=== PATIENT | male | born 2000 | race Caucasian/White ===

== ENCOUNTER 2023-03-29 11:57 | Inpatient (IN) | payer OTHER, SELFPAY ==
--- NOTE | ~2023-03-29 | XR_ITS ---
EXAMINATION: XR CHEST UPRIGHT AP PORTABLE, 2:17 PM CLINICAL INFORMATION: Cough COMPARISON: None available. TECHNIQUE: Frontal view of the chest was obtained. FINDINGS: No significant abnormality is noted involving the heart, lungs, mediastinum, bony thorax or soft tissues. XR/XR chest 1V IMPRESSION: No acute disease
--- NOTE | 2023-03-29 12:01 | ECG_ITS ---
Test Reason : TOXIC INGESTION] Blood Pressure : / mmHG Vent. Rate : 073 BPM Atrial Rate : 073 BPM P-R Int : 118 ms QRS Dur : 096 ms QT Int : 390 ms P-R-T Axes : -41 051 048 degrees QTc Int : 429 ms Unusual P axis, possible ectopic atrial rhythm ST elevation, consider early repolarization Abnormal ECG No previous ECGs available Referred By: Yuni Louis Electronically Signed By:THOR ALBA
[2023-03-29 12:02] VITALS: BP 120/71; BP 130/80; PULSE 70; PULSE 94; RESP 16; TEMP 37; O2SAT 98; BMI 19.3
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
--- NOTE | 2023-03-29 12:26 | MHC.CARE ---
Pt was seen by [facility] in community, pt inpatient level of care and will be bed search.
[2023-03-29 12:27] LABS: MANUAL DIFF FLAG NO
[2023-03-29 12:28] LABS: Basophils Absolute Auto 0.1 X10*3/uL (0.0-0.2); Basophils Percent Auto 0.5 % (0-2); Eosinophils Percent Auto 0.3 % (0-4); Hematocrit 41.9 % (42.0-52.0); Hemoglobin 14.3 g/dl (14.0-18.0); Imm Gran Abs Auto 0.06 X10*3/uL (0.00-0.03); Imm Gran Pct Auto 0.4 % (0.0-0.4); Lymphocytes Absolute Auto 1.1 X10*3/uL (1.2-4.9); Lymphocytes Percent Auto 7.4 % (20-40); Mean Corpuscular HGB Conc 34.1 g/dl (31.0-36.0); Mean Corpuscular Hemoglobin 31.8 pg (27.0-33.0); Mean Corpuscular Volume 93.3 fL (80.0-98.0); Mean Platelet Volume 9.6 fL (9.4-12.4); Monocytes Absolute Auto 1.3 X10*3/uL (0.1-1.2); Monocytes Percent Auto 8.9 % (2-11); Neutrophils Absolute Auto 12.3 x10*3/uL (2.0-8.3); Neutrophils Percent Auto 82.5 % (45-73); Platelet Count 289 X10*3/uL (160-400); Red Blood Count 4.49 X10*6/uL (4.60-5.80); Red Cell Distribution Width 13.3 % (11.0-16.0); White Blood Count 14.9 X10*3/uL (4.8-10.8)
--- NOTE | 2023-03-29 12:38 | PC.NURSE ---
call to poison control; [phone]. recommendations to supportive care; pt may experience n/v/d. recommends egd/scope if pt experiences severe abd pain/n/v. recommends to monitor pt for another 1-[address] Louis notified of all recommendations.
[2023-03-29 12:41] LABS: Ethanol < 10 mg/dL
[2023-03-29 12:42] LABS: Alanine Aminotransferase 12 U/L (0-40); Albumin Level 4.5 g/dL (3.5-5.0); Alkaline Phosphatase 71 U/L (39-117); Anion Gap 13 (12-20); Aspartate Amino Transferase 36 U/L (5-37); Bilirubin Total 0.5 mg/dL (0.0-1.0); Blood Urea Nitrogen 10 mg/dL (9-16); Calcium 9.6 mg/dL (8.4-10.2); Carbon Dioxide 23 mmol/L (22-29); Chloride 109 mmol/L (96-108); Creatinine Clr Calc Pharmacy 122.3; Estimated Glomerular Filt Rate > 60; Glucose Random 99 mg/dL (60-115); Magnesium 1.9 mg/dL (1.6-2.6); Potassium 3.6 mmol/L (3.3-5.1); Sodium 141 mmol/L (135-145)
[2023-03-29 12:43] LABS: Acetaminophen LAB < 17 mcg/mL (<30); Salicylate < 5.0 mg/dL (15-30)
[2023-03-29 12:44] LABS: Prothrombin Time 11.8 SEC (11.1-13.3)
[2023-03-29 12:48] LABS: Partial Thromboplastin Time 29.5 SEC (26.0-36.4)
[2023-03-29 12:50] LABS: Troponin-I High Sensitivity < 2.7 ng/L (<3.5-35.0)
--- NOTE | 2023-03-29 13:10 | PC.NURSE ---
pt continues to deny n/v/d. resting in stretcher; calm cooperative. respirations even and unlabored. sitter at bedside.
[2023-03-29 13:49] VITALS: BP 130/72; PULSE 89; RESP 16; O2SAT 96
[2023-03-29 13:55] LABS: Appearance Urine Clear; Color Urine Yellow; Glucose Urine UA Negative (Negative); Leukocyte Esterase Urine Negative (Negative); Nitrite Urine Negative (Negative); Specific Gravity - Urine 1.025 (1.005-1.025); Urine Blood Negative (Negative); Urine Ketones 15 mg/dL (Negative); Urine Protein Trace mg/dL (Neg-Trace)
[2023-03-29 14:10] LABS: Amphetamine Screen Urine Not Detected (Not Detect); Barbiturates, Urine Not Detected (Not Detect); Benzodiazepines Screen Urine Not Detected (Not Detect); Cannabinoid Screen Urine POSITIVE (Not Detect); Cocaine Screen Urine POSITIVE (Not Detect); Fentanyl, urine Not Detected (Not Detect); Opiate Screen Urine Not Detected (Not Detect); Phencyclidine Screen Urine Not Detected (Not Detect)
[2023-03-29 14:20] VITALS: BP 127/76; PULSE 96; RESP 14; O2SAT 99
--- NOTE | 2023-03-29 14:47 | PC.NURSE ---
call from poison control; recommendations to medically clear pt o consult psych/care team.
[2023-03-29 14:53] LABS: Influenza A PCR NEGATIVE (Negative); Influenza B PCR NEGATIVE (Negative); Resp Syncy Virus RNA Qual PCR NEGATIVE (Negative); SARS COV2 PCR INHOUSE NEGATIVE (Negative)
--- NOTE | 2023-03-29 16:50 | PC.NURSE ---
t irritable, screaming, crying and hitting his fists on the floor after being told that he will be going inpatient psychiatric. PRN Hydroxyzine ordered per MD Louis, offered to the pt and he initially said yes, then before t/w left the room pt stated actually never mind I don't want it
[2023-03-29] MEDS: Melatonin 3 MG TABLET 9 MG PO (20:53)
[2023-03-29] MEDS: traZODone HCL 50 MG TABLET PO (20:54)
[2023-03-29] MEDS: OLANZapine 5 MG TABLET PO (20:54)
[2023-03-29] MEDS: hydrOXYzine HCL 25 MG TABLET PO (20:54)
[2023-03-29 21:38] VITALS: BP 140/82; PULSE 98; RESP 16; TEMP 36.9; O2SAT 98
[2023-03-29 21:39] VITALS: BMI 18.1
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
[2023-03-30] MEDS: hydrOXYzine HCL 25 MG TABLET PO ×2 (15:30→22:37)
[2023-03-30] MEDS: OLANZapine 5 MG TABLET PO ×3 (16:00→22:37)
[2023-03-30] MEDS: cloNIDine HCL 0.1 MG TABLET PO (16:01)
[2023-03-30] MEDS: FLUoxetine HCl 20 MG CAPSULE PO (16:13)
[2023-03-30 16:14] VITALS: BP 118/72; PULSE 95; RESP 16; TEMP 36.7; O2SAT 98
[2023-03-30 20:05] VITALS: RESP 18
[2023-03-30] MEDS: Melatonin 3 MG TABLET 9 MG PO (22:25)
[2023-03-30] MEDS: traZODone HCL 50 MG TABLET PO (22:26)
[2023-03-30] MEDS: LORazepam 1 MG TABLET PO (22:56)
--- NOTE | 2023-03-31 00:40 | PC.NURSE ---
Celestine is admitted to [facility] for safety, observation and medication management post SI/SA, diagnosis MDD without psychotic features. During the shift he was observed to be laying in a corner of the day room with covers over his head, presented as irritable. Declined initial engagement, stated he wanted to sleep. Around 2200 hours he presented self at the nursing station requesting HS meds, receptive to having VS done, meds given without problems. Later he exhibited emotional outburst after phone call with his mother. He was observed by staff to be crying, and yelling, verbalized, I'm going to freak out! Support and distraction provided my staff, MD Lacy updated and order received for ativan. Celestine was adherent with med, used the phone again to call mother against staff advise, once again became belligerent, slamming assistant customer service manager and yelling. Phones was shut off at 2300 which concluded his ability to contact mother any further. Verbalized, This place is retarded. as he walked to his room. No further incidents.
--- NOTE | 2023-03-31 09:16 | P.PNPSI_ITS ---
Subjective Subjective Date of Service: 03/31/23 Reason For Visit: si Subjective Notes: 3 Day Interim History: Reviewed in team and . Patient reports feeling fine today. Pt stated, I feel fine and safe. I got into an argument with my girlfriend; I was freaking out and then I drank the detergent. It was a really bad slip up. I've never done that before . Patient denies SI. Pt reports his current living situation is difficult; pt stated, I live in a house filled with cat piss and dog shit. I just need to grab my stuff and leave . Pt reports he would like referrals for outpatient providers. He is requesting to be discharged. His 3 day is up on 04/05. Medication Compliance: Yes Side effects from medications: No Attending Groups: No Review of Systems Constitutional: Reports as per HPI Eyes: Reports as per HPI Reports as per HPI Cardiovascular: Reports as per HPI Respiratory: Reports as per HPI Gastrointestinal: Reports as per HPI Genitourinary: Reports as per HPI Musculoskeletal: Reports as per HPI Skin/Breast: Reports as per HPI Reports as per HPI Psychiatric: Reports as per HPI Endocrine: Reports as per HPI Hematologic/Lymphatic: Reports as per HPI Allergic/Immunologic: Reports as per HPI Mental Status Exam Mental Status Exam Narrative: Pt is alert and oriented; behavior is guarded and irritable; dressed in hospital attire; mood is described as fine ; eye contact appropriate; Speech is normal rate, volume and prosody and not pressured; no psychomotor agitation/retardation present; thought process is organized and goal directed; Thought content is on discharge; otherwise pertinent to relevant topics and without any delusional content, paranoid ideations or grandiosity; denies SI/HI. There is no evidence of perceptual disturbance. Patients insight and judgment are poor. Diagnostics Vital Signs (24Hr): Vital Signs - 24 hr 03/30/23 16:14 03/30/23 20:05 Temperature 98.1 F Pulse Rate 95 Respiratory Rate 16 18 Blood Pressure 118/72 Pulse Oximetry 98 Oxygen Delivery Method Room Air BMI result Body Mass Index 18.1 Labs 03/29/23 12:22 03/29/23 12:22 Labs: Laboratory Results - last 48 hr 03/29/23 03/29/23 03/29/23 12:22 12:22 12:22 WBC 14.9 H RBC 4.49 L Hgb 14.3 Hct 41.9 L MCV 93.3 MCH 31.8 MCHC 34.1 RDW 13.3 Plt Count 289 MPV 9.6 Immature Gran % (Auto) 0.4 Neut % (Auto) 82.5 H Lymph % (Auto) 7.4 L [place] % (Auto) 8.9 Eos % (Auto) 0.3 Baso % (Auto) 0.5 Lymph # (Auto) 1.1 L [place] # (Auto) 1.3 H Eos # (Auto) 0.0 Baso # (Auto) 0.1 Abs Immat Gran (auto) 0.06 H Absolute Neuts (auto) 12.3 H Absolute Nucleated RBC 0.000 Nucleated RBC % (auto) 0.0 PT INR APTT 29.5 Sodium 141 Potassium 3.6 Chloride 109 H Carbon Dioxide 23 Anion Gap 13 BUN 10 Creatinine 0.80 Estim Creat Clear Calc 122.3 Estimated GFR > 60 Random Glucose 99 Calcium 9.6 Magnesium 1.9 Total Bilirubin 0.5 AST 36 ALT 12 Alkaline Phosphatase 71 Troponin I High Sens Total Protein 8.0 Albumin 4.5 Urine Color Urine Appearance Urine pH Ur Specific [place] Urine Protein Urine Glucose (UA) Urine Ketones Urine Blood Urine Nitrite Ur Leukocyte Esterase Salicylates Urine Opiates Screen Urine Fentanyl Screen Acetaminophen Ur Barbiturates Screen Ur Phencyclidine Scrn Ur Amphetamines Screen U Benzodiazepines Scrn Urine Cocaine Screen U Marijuana (THC) Screen Ethyl Alcohol Influenza Type A (PCR) Influenza Type B (PCR) RSV RNA Qual (PCR) SARS-CoV-2 RNA (RT-PCR) 03/29/23 03/29/23 03/29/23 12:22 12:22 12:22 WBC RBC Hgb Hct MCV MCH MCHC RDW Plt Count MPV Immature Gran % (Auto) Neut % (Auto) Lymph % (Auto) [place] % (Auto) Eos % (Auto) Baso % (Auto) Lymph # (Auto) [place] # (Auto) Eos # (Auto) Baso # (Auto) Abs Immat Gran (auto) Absolute Neuts (auto) Absolute Nucleated RBC Nucleated RBC % (auto) PT 11.8 INR 1.0 APTT Sodium Potassium Chloride Carbon Dioxide Anion Gap BUN Creatinine Estim Creat Clear Calc Estimated GFR Random Glucose Calcium Magnesium Total Bilirubin AST ALT Alkaline Phosphatase Troponin I High Sens < 2.7 Total Protein Albumin Urine Color Urine Appearance Urine pH Ur Specific [place] Urine Protein Urine Glucose (UA) Urine Ketones Urine Blood Urine Nitrite Ur Leukocyte Esterase Salicylates < 5.0 L Urine Opiates Screen Urine Fentanyl Screen Acetaminophen < 17 Ur Barbiturates Screen Ur Phencyclidine Scrn Ur Amphetamines Screen U Benzodiazepines Scrn Urine Cocaine Screen U Marijuana (THC) Screen Ethyl Alcohol Influenza Type A (PCR) Influenza Type B (PCR) RSV RNA Qual (PCR) SARS-CoV-2 RNA (RT-PCR) 03/29/23 03/29/23 03/29/23 12:22 13:46 13:46 WBC RBC Hgb Hct MCV MCH MCHC RDW Plt Count MPV Immature Gran % (Auto) Neut % (Auto) Lymph % (Auto) [place] % (Auto) Eos % (Auto) Baso % (Auto) Lymph # (Auto) [place] # (Auto) Eos # (Auto) Baso # (Auto) Abs Immat Gran (auto) Absolute Neuts (auto) Absolute Nucleated RBC Nucleated RBC % (auto) PT INR APTT Sodium Potassium Chloride Carbon Dioxide Anion Gap BUN Creatinine Estim Creat Clear Calc Estimated GFR Random Glucose Calcium Magnesium Total Bilirubin AST ALT Alkaline Phosphatase Troponin I High Sens Total Protein Albumin Urine Color Yellow Urine Appearance Clear Urine pH 8.0 Ur Specific [place] 1.025 Urine Protein Trace Urine Glucose (UA) Negative Urine Ketones 15 Urine Blood Negative Urine Nitrite Negative Ur Leukocyte Esterase Negative Salicylates Urine Opiates Screen Not Detected Urine Fentanyl Screen Not Detected Acetaminophen Ur Barbiturates Screen Not Detected Ur Phencyclidine Scrn Not Detected Ur Amphetamines Screen Not Detected U Benzodiazepines Scrn Not Detected Urine Cocaine Screen POSITIVE H U Marijuana (THC) Screen POSITIVE H Ethyl Alcohol < 10 Influenza Type A (PCR) Influenza Type B (PCR) RSV RNA Qual (PCR) SARS-CoV-2 RNA (RT-PCR) 03/29/23 13:53 WBC RBC Hgb Hct MCV MCH MCHC RDW Plt Count MPV Immature Gran % (Auto) Neut % (Auto) Lymph % (Auto) [place] % (Auto) Eos % (Auto) Baso % (Auto) Lymph # (Auto) [place] # (Auto) Eos # (Auto) Baso # (Auto) Abs Immat Gran (auto) Absolute Neuts (auto) Absolute Nucleated RBC Nucleated RBC % (auto) PT INR APTT Sodium Potassium Chloride Carbon Dioxide Anion Gap BUN Creatinine Estim Creat Clear Calc Estimated GFR Random Glucose Calcium Magnesium Total Bilirubin AST ALT Alkaline Phosphatase Troponin I High Sens Total Protein Albumin Urine Color Urine Appearance Urine pH Ur Specific [place] Urine Protein Urine Glucose (UA) Urine Ketones Urine Blood Urine Nitrite Ur Leukocyte Esterase Salicylates Urine Opiates Screen Urine Fentanyl Screen Acetaminophen Ur Barbiturates Screen Ur Phencyclidine Scrn Ur Amphetamines Screen U Benzodiazepines Scrn Urine Cocaine Screen U Marijuana (THC) Screen Ethyl Alcohol Influenza Type A (PCR) NEGATIVE Influenza Type B (PCR) NEGATIVE RSV RNA Qual (PCR) NEGATIVE SARS-CoV-2 RNA (RT-PCR) NEGATIVE Imaging Radiology Impressions: ITS Impressions Chest X-Ray 03/29/23 14:31 IMPRESSION: No acute disease Medications Medications Current Medications Acetaminophen (Acetaminophen 325 Mg Tablet) 650 mg PO Q6H PRN PRN Reason: Headache/Pain Mild Scale (1-3) Al Hydroxide/Mg Hydroxide (Magnesium Hydrox/Alum Hydrox 30 Ml Oral.Susp) 30 ml PO Q6H PRN PRN Reason: Heartburn/Nausea Clonidine HCl (Clonidine Hcl 0.1 Mg Tablet) 0.1 mg PO Q6H PRN; Protocol PRN Reason: Anxiety Last Admin: 03/30/23 16:01 Dose: 0.1 mg Fluoxetine HCl (Fluoxetine Hcl 20 Mg Capsule) 20 mg PO DAILY [facility] Last Admin: 03/30/23 10:38 Dose: Not Given Hydroxyzine HCl (Hydroxyzine Hcl 25 Mg Tablet) 25 mg PO TID PRN PRN Reason: anxiety Last Admin: 03/30/23 22:37 Dose: 25 mg Magnesium Hydroxide (Milk Of Magnesia 30 Ml Oral.Susp) 30 ml PO DAILY PRN PRN Reason: Constipation Melatonin (Melatonin 3 Mg Tablet) 9 mg PO BEDTIME GIANFRANCO Last Admin: 03/30/23 22:25 Dose: 9 mg Olanzapine (Olanzapine 5 Mg Tablet) 5 mg PO BEDTIME GIANFRANCO Last Admin: 03/30/23 22:26 Dose: 5 mg Olanzapine (Olanzapine 5 Mg Tablet) 5 mg PO DAILY PRN PRN Reason: Agitation Last Admin: 03/30/23 22:37 Dose: 5 mg Trazodone HCl (Trazodone Hcl 50 Mg Tablet) 50 mg PO BEDTIME GIANFRANCO Last Admin: 03/30/23 22:26 Dose: 50 mg Allergies Allergies Allergy/AdvReac Type Severity Reaction Status Date / Time Unable to Assess Allergy Verified 03/29/23 12:01 Assessment & Plan Assessment & Plan (1) MDD (major depressive disorder), recurrent episode, severe: Status: Acute Code(s): F33.2 - Major depressive disorder, recurrent severe without psychotic features (2) Suicidal ideation: Status: Acute Code(s): R45.851 - Suicidal ideations (3) Cocaine abuse: Status: Acute Code(s): F14.10 - Cocaine abuse, uncomplicated Plan Patient is a 22 year old male who presented to [facility] ER after being assessed in the community by [facility] due to impulsively drinking laundry detergent in an attempt for SI secondary to a fight with his girlfriend in which she told him to kill himself. Plan: 3 day notice 15 minute safety checks Restart home medications Referral to outpatient providers 03/31: Patient reports feeling fine today. Pt stated, I feel fine and safe. I got into an argument with my girlfriend; I was freaking out and then I drank the detergent. It was a really bad slip up. I've never done that before . Patient denies SI. Pt reports his current living situation is difficult; pt stated, I live in a house filled with cat piss and dog shit. I just need to grab my stuff and leave . Pt reports he would like referrals for outpatient providers. He is requesting to be discharged. His 3 day is up on 04/05. Continue with current tx plan. Patient educated on: diagnosis, medication risk/benefits and therapeutic str ategies Informed Consent: understands Reason for continued inpatient stay Substantial Risk for: med/psych decompensation Time Spent With Patient Time: Total time managing care of this patient today _30___ minutes.
[2023-03-31] MEDS: hydrOXYzine HCL 25 MG TABLET PO ×2 (10:50→17:54)
[2023-03-31] MEDS: OLANZapine 5 MG TABLET PO ×3 (10:51→23:06)
[2023-03-31] MEDS: FLUoxetine HCl 20 MG CAPSULE PO (10:51)
[2023-03-31] MEDS: cloNIDine HCL 0.1 MG TABLET PO ×2 (12:13→18:43)
[2023-03-31 12:20] VITALS: BMI 18.2
[2023-03-31 12:21] VITALS: BP 136/78; PULSE 72; RESP 17; TEMP 36.7; O2SAT 99
[2023-03-31] MEDS: Melatonin 3 MG TABLET 9 MG PO (20:19)
[2023-03-31] MEDS: traZODone HCL 50 MG TABLET PO (20:19)
[2023-03-31 20:30] VITALS: BP 120/71; PULSE 69; RESP 18; TEMP 36.2; O2SAT 96
--- NOTE | 2023-04-01 09:56 | P.PNPSI_ITS ---
Subjective Subjective Date of Service: 04/01/23 Reason For Visit: si Subjective Notes: 3 Day Interim History: Reviewed in team and . Patient guarded and irritable during 1:1; laying in bed. Patient reports feeling fine today. When asked about the events prior to admission, pt stated, I don't want to think about that. It's not something I'm going to do again. My girlfriend feels bad about what happened . Patient reports clonidine has been helpful with his anxiety. pt reports he plans on going to a friends house after I leave here and if he doesn't let me stay then I'll go to a penitentiary. It's not the first time I've been homeless . States he does want referrals to outpatient providers. Denies SI/HI/VH/AH at this time. Medication Compliance: Yes Side effects from medications: No Attending Groups: No Review of Systems Review of Systems Pertinent positives and negatives as stated in HPI. Constitutional: Reports as per HPI Eyes: Reports as per HPI Reports as per HPI Cardiovascular: Reports as per HPI Respiratory: Reports as per HPI Gastrointestinal: Reports as per HPI Genitourinary: Reports as per HPI Musculoskeletal: Reports as per HPI Skin/Breast: Reports as per HPI Reports as per HPI Psychiatric: Reports as per HPI Endocrine: Reports as per HPI Hematologic/Lymphatic: Reports as per HPI Allergic/Immunologic: Reports as per HPI Mental Status Exam Mental Status Exam Narrative: Pt is alert and oriented; behavior is guarded and irritable; dressed in hospital attire; mood is described as fine ; eye contact appropriate; Speech is normal rate, volume and prosody and not pressured; no psychomotor agitation/retardation present; thought process is organized and goal directed; Thought content is on discharge; otherwise pertinent to relevant topics and without any delusional content, paranoid ideations or grandiosity; denies SI/HI. There is no evidence of perceptual disturbance. Patients insight and judgment are poor. Diagnostics Vital Signs (24Hr): Vital Signs - 24 hr 03/31/23 12:21 03/31/23 20:30 Temperature 98.0 F 97.2 F Pulse Rate 72 69 Respiratory Rate 17 18 Blood Pressure 136/78 120/71 Pulse Oximetry 99 96 Oxygen Delivery Method Room Air Room Air BMI result Body Mass Index 18.2 Labs 03/29/23 12:22 03/29/23 12:22 Imaging Radiology Impressions: ITS Impressions Chest X-Ray 03/29/23 14:31 IMPRESSION: No acute disease Medications Medications Current Medications Acetaminophen (Acetaminophen 325 Mg Tablet) 650 mg PO Q6H PRN PRN Reason: Headache/Pain Mild Scale (1-3) Al Hydroxide/Mg Hydroxide (Magnesium Hydrox/Alum Hydrox 30 Ml Oral.Susp) 30 ml PO Q6H PRN PRN Reason: Heartburn/Nausea Clonidine HCl (Clonidine Hcl 0.1 Mg Tablet) 0.1 mg PO Q6H PRN; Protocol PRN Reason: Anxiety Last Admin: 03/31/23 18:43 Dose: 0.1 mg Fluoxetine HCl (Fluoxetine Hcl 20 Mg Capsule) 20 mg PO DAILY [facility] Last Admin: 03/31/23 10:51 Dose: 20 mg Hydroxyzine HCl (Hydroxyzine Hcl 25 Mg Tablet) 25 mg PO TID PRN PRN Reason: anxiety Last Admin: 03/31/23 17:54 Dose: 25 mg Magnesium Hydroxide (Milk Of Magnesia 30 Ml Oral.Susp) 30 ml PO DAILY PRN PRN Reason: Constipation Melatonin (Melatonin 3 Mg Tablet) 9 mg PO BEDTIME [facility] Last Admin: 03/31/23 20:19 Dose: 9 mg Nicotine Polacrilex (Nicotine Polacrilex 2 Mg Gum) 2 mg BUCCAL Q2H PRN PRN Reason: Nicotine Cravings Olanzapine (Olanzapine 5 Mg Tablet) 5 mg PO BEDTIME [facility] Last Admin: 03/31/23 20:19 Dose: 5 mg Olanzapine (Olanzapine 5 Mg Tablet) 5 mg PO DAILY PRN PRN Reason: Agitation Last Admin: 03/31/23 23:06 Dose: 5 mg Trazodone HCl (Trazodone Hcl 50 Mg Tablet) 50 mg PO BEDTIME [facility] Last Admin: 03/31/23 20:19 Dose: 50 mg Allergies Allergies Allergy/AdvReac Type Severity Reaction Status Date / Time Unable to Assess Allergy Verified 03/29/23 12:01 Assessment & Plan Assessment & Plan (1) MDD (major depressive disorder), recurrent episode, severe: Status: Acute Code(s): F33.2 - Major depressive disorder, recurrent severe without psychotic features (2) Suicidal ideation: Status: Acute Code(s): R45.851 - Suicidal ideations (3) Cocaine abuse: Status: Acute Code(s): F14.10 - Cocaine abuse, uncomplicated Plan Patient is a 22 year old male who presented to [facility] after being assessed in the community by [facility] due to impulsively drinking laundry detergent in an attempt for SI secondary to a fight with his girlfriend in which she told him to kill himself. Plan: 3 day notice 15 minute safety checks Restart home medications Referral to outpatient providers 03/31: Patient reports feeling fine today. Pt stated, I feel fine and safe. I got into an argument with my girlfriend; I was freaking out and then I drank the detergent. It was a really bad slip up. I've never done that before . Patient denies SI. Pt reports his current living situation is difficult; pt stated, I live in a house filled with cat piss and dog shit. I just need to grab my stuff and leave . Pt reports he would like referrals for outpatient providers. He is requesting to be discharged. His 3 day is up on 04/05. Continue with current tx plan. 04/01: Patient guarded and irritable during 1:1; laying in bed. Patient reports clonidine has been helpful with his anxiety. pt reports he plans on going to a friends house after I leave here and if he doesn't let me stay then I'll go to a penitentiary. It's not the first time I've been homeless . States he does want referrals to outpatient providers. Denies SI/HI/VH/AH at this time. Increased clonidine to 0.1mg Q4H PO PRN for anxiety. Zyprexa PRN increased to 5mg PO BID for agitation. Patient educated on: medication risk/benefits and therapeutic strategies Informed Consent: understands and further education needed Reason for continued inpatient stay Substantial Risk for: med/psych decompensation Time Spent With Patient Time: Total time managing care of this patient today _30___ minutes.
[2023-04-01] MEDS: FLUoxetine HCl 20 MG CAPSULE PO (12:10)
[2023-04-01 12:16] VITALS: BP 146/82; PULSE 60; RESP 18; TEMP 36.4; O2SAT 96
[2023-04-01] MEDS: cloNIDine HCL 0.1 MG TABLET PO ×2 (12:18→19:55)
[2023-04-01] MEDS: hydrOXYzine HCL 25 MG TABLET PO ×2 (16:57→21:55)
[2023-04-01] MEDS: Nicotine Polacrilex 2 MG GUM BUCCAL ×3 (16:57→21:55)
[2023-04-01 19:46] VITALS: BP 133/82; PULSE 78; RESP 18; TEMP 36.7; O2SAT 93
[2023-04-01] MEDS: traZODone HCL 50 MG TABLET PO (20:15)
[2023-04-01] MEDS: OLANZapine 5 MG TABLET PO (20:15)
[2023-04-01] MEDS: Melatonin 3 MG TABLET 9 MG PO (20:15)
[2023-04-02] MEDS: OLANZapine 5 MG TABLET PO ×3 (05:51→20:26)
[2023-04-02 06:00] VITALS: BP 125/75; PULSE 87; RESP 18; TEMP 36.6; O2SAT 96
--- NOTE | 2023-04-02 11:16 | HO.PSYCHPN ---
Subjective Subjective Date of Service: 04/02/23 Reason For Visit: si Subjective Notes: Conditional Voluntary and 3 Day Interim History: Patient was seen and discussed in rounds today. Records and plans were reviewed. He continues to be isolative. Eating and sleeping adequately. He is using his PRNs. He is somewhat guarded. Tearful at times. No complaints or changes. He is put on 15 minute checks. Review of Systems Review of Systems Yes Unobtainable due to mental status Mental Status Exam Mental Status Exam Narrative: In today's visit he is alert, oriented. Normal speech. No eye contact. Affect is appropriate and slightly irritable. No signs of psychosis. Cognitively intact. No SI. Judgment is intact Diagnostics Vital Signs (24Hr): Vital Signs - 24 hr 04/01/23 12:16 04/01/23 19:46 Temperature 97.6 F 98.1 F Pulse Rate 60 78 Respiratory Rate 18 18 Blood Pressure 146/82 H 133/82 Pulse Oximetry 96 93 Oxygen Delivery Method Room Air Room Air BMI result Body Mass Index 18.2 Labs 03/29/23 12:22 03/29/23 12:22 Imaging Radiology Impressions: ITS Impressions Chest X-Ray 03/29/23 14:31 IMPRESSION: No acute disease Medications Medications Current Medications Acetaminophen (Acetaminophen 325 Mg Tablet) 650 mg PO Q6H PRN PRN Reason: Headache/Pain Mild Scale (1-3) Al Hydroxide/Mg Hydroxide (Magnesium Hydrox/Alum Hydrox 30 Ml Oral.Susp) 30 ml PO Q6H PRN PRN Reason: Heartburn/Nausea Clonidine HCl (Clonidine Hcl 0.1 Mg Tablet) 0.1 mg PO Q4H PRN; Protocol PRN Reason: Anxiety Last Admin: 04/01/23 19:55 Dose: 0.1 mg Fluoxetine HCl (Fluoxetine Hcl 20 Mg Capsule) 20 mg PO DAILY [facility] Last Admin: 04/01/23 12:10 Dose: 20 mg Hydroxyzine HCl (Hydroxyzine Hcl 25 Mg Tablet) 25 mg PO TID PRN PRN Reason: anxiety Last Admin: 04/01/23 21:55 Dose: 25 mg Magnesium Hydroxide (Milk Of Magnesia 30 Ml Oral.Susp) 30 ml PO DAILY PRN PRN Reason: Constipation Melatonin (Melatonin 3 Mg Tablet) 9 mg PO BEDTIME [facility] Last Admin: 04/01/23 20:15 Dose: 9 mg Nicotine Polacrilex (Nicotine Polacrilex 2 Mg Gum) 2 mg BUCCAL Q2H PRN PRN Reason: Nicotine Cravings Last Admin: 04/01/23 21:55 Dose: 2 mg Olanzapine (Olanzapine 5 Mg Tablet) 5 mg PO BEDTIME [facility] Last Admin: 04/01/23 20:15 Dose: 5 mg Olanzapine (Olanzapine 5 Mg Tablet) 5 mg PO BID PRN PRN Reason: Agitation Last Admin: 04/02/23 05:51 Dose: 5 mg Trazodone HCl (Trazodone Hcl 50 Mg Tablet) 50 mg PO BEDTIME [facility] Last Admin: 04/01/23 20:15 Dose: 50 mg Allergies Allergies Allergy/AdvReac Type Severity Reaction Status Date / Time Unable to Assess Allergy Verified 03/29/23 12:01 Assessment & Plan Assessment & Plan (1) MDD (major depressive disorder), recurrent episode, severe: Status: Acute Code(s): F33.2 - Major depressive disorder, recurrent severe without psychotic features (2) Suicidal ideation: Status: Acute Code(s): R45.851 - Suicidal ideations (3) Cocaine abuse: Status: Acute Code(s): F14.10 - Cocaine abuse, uncomplicated Plan Patient is a 22 year old male who presented to [facility] after being assessed in the community by [facility] due to impulsively drinking laundry detergent in an attempt for SI secondary to a fight with his girlfriend in which she told him to kill himself. Plan: 3 day notice 15 minute safety checks Restart home medications Referral to outpatient providers 03/31: Patient reports feeling fine today. Pt stated, I feel fine and safe. I got into an argument with my girlfriend; I was freaking out and then I drank the detergent. It was a really bad slip up. I've never done that before . Patient denies SI. Pt reports his current living situation is difficult; pt stated, I live in a house filled with cat piss and dog shit. I just need to grab my stuff and leave . Pt reports he would like referrals for outpatient providers. He is requesting to be discharged. His 3 day is up on 04/05. Continue with current tx plan. 04/01: Patient guarded and irritable during 1:1; laying in bed. Patient reports clonidine has been helpful with his anxiety. pt reports he plans on going to a friends house after I leave here and if he doesn't let me stay then I'll go to a intermediate. It's not the first time I've been homeless . States he does want referrals to outpatient providers. Denies SI/HI/VH/AH at this time. Increased clonidine to 0.1mg Q4H PO PRN for anxiety. Zyprexa PRN increased to 5mg PO BID for agitation. 04/02: Continue current plans and regimen Reason for continued inpatient stay Substantial Risk for: rapid decompensation Time Spent With Patient Time: Total time managing care of this patient today ____ minutes.
[2023-04-02] MEDS: FLUoxetine HCl 20 MG CAPSULE PO (13:27)
[2023-04-02] MEDS: cloNIDine HCL 0.1 MG TABLET PO ×2 (13:27→20:26)
[2023-04-02] MEDS: Nicotine Polacrilex 2 MG GUM BUCCAL ×2 (14:23→17:30)
[2023-04-02] MEDS: hydrOXYzine HCL 25 MG TABLET PO (14:23)
[2023-04-02] MEDS: Melatonin 3 MG TABLET 9 MG PO (20:25)
[2023-04-02] MEDS: traZODone HCL 50 MG TABLET PO (20:26)
[2023-04-02 20:35] VITALS: BP 109/76; PULSE 62; RESP 18; TEMP 36.8; O2SAT 99
--- NOTE | 2023-04-03 09:37 | P.PNPSI_ITS ---
Subjective Subjective Date of Service: 04/03/23 Reason For Visit: si Subjective Notes: Conditional Voluntary and 3 Day Interim History: Patient was seen and discussed in rounds today. Records and plans were reviewed. He has been very anxious and reactive. Continues to have racing thoughts. Yesterday he needed lot of deescalating and his PRNs were not immediately helpful. I increased his clonidine to 0.2 mg t.i.d. p.r.n. and hydroxyzine to 50 mg p.r.n.. When he is not over stimulated he is active and social. No other changes were made Medication Compliance: Yes Side effects from medications: No Attending Groups: Intermittent Review of Systems Review of Systems Yes Unobtainable due to mental status Mental Status Exam Mental Status Exam Narrative: In today's visit he was irritable and angry about being asked questions and bein g awakened. He was not cooperative to be examined Diagnostics Vital Signs (24Hr): Vital Signs - 24 hr 04/02/23 20:35 Temperature 98.2 F Pulse Rate 62 Respiratory Rate 18 Blood Pressure 109/76 Pulse Oximetry 99 Oxygen Delivery Method Room Air BMI result Body Mass Index 18.2 Labs 03/29/23 12:22 03/29/23 12:22 Imaging Radiology Impressions: ITS Impressions Chest X-Ray 03/29/23 14:31 IMPRESSION: No acute disease Medications Medications Current Medications Acetaminophen (Acetaminophen 325 Mg Tablet) 650 mg PO Q6H PRN PRN Reason: Headache/Pain Mild Scale (1-3) Al Hydroxide/Mg Hydroxide (Magnesium Hydrox/Alum Hydrox 30 Ml Oral.Susp) 30 ml PO Q6H PRN PRN Reason: Heartburn/Nausea Clonidine HCl (Clonidine Hcl 0.1 Mg Tablet) 0.1 mg PO Q4H PRN; Protocol PRN Reason: Anxiety Last Admin: 04/02/23 20:26 Dose: 0.1 mg Fluoxetine HCl (Fluoxetine Hcl 20 Mg Capsule) 20 mg PO DAILY [facility] Last Admin: 04/02/23 13:27 Dose: 20 mg Hydroxyzine HCl (Hydroxyzine Hcl 25 Mg Tablet) 25 mg PO TID PRN PRN Reason: anxiety Last Admin: 04/02/23 14:23 Dose: 25 mg Magnesium Hydroxide (Milk Of Magnesia 30 Ml Oral.Susp) 30 ml PO DAILY PRN PRN Reason: Constipation Melatonin (Melatonin 3 Mg Tablet) 9 mg PO BEDTIME [facility] Last Admin: 04/02/23 20:25 Dose: 9 mg Nicotine Polacrilex (Nicotine Polacrilex 2 Mg Gum) 2 mg BUCCAL Q2H PRN PRN Reason: Nicotine Cravings Last Admin: 04/02/23 17:30 Dose: 2 mg Olanzapine (Olanzapine 5 Mg Tablet) 5 mg PO BEDTIME [facility] Last Admin: 04/02/23 20:26 Dose: 5 mg Olanzapine (Olanzapine 5 Mg Tablet) 5 mg PO BID PRN PRN Reason: Agitation Last Admin: 04/02/23 17:30 Dose: 5 mg Trazodone HCl (Trazodone Hcl 50 Mg Tablet) 50 mg PO BEDTIME [facility] Last Admin: 04/02/23 20:26 Dose: 50 mg Allergies Allergies Allergy/AdvReac Type Severity Reaction Status Date / Time Unable to Assess Allergy Verified 03/29/23 12:01 Assessment & Plan Assessment & Plan (1) MDD (major depressive disorder), recurrent episode, severe: Status: Acute Code(s): F33.2 - Major depressive disorder, recurrent severe without psychotic features (2) Suicidal ideation: Status: Acute Code(s): R45.851 - Suicidal ideations (3) Cocaine abuse: Status: Acute Code(s): F14.10 - Cocaine abuse, uncomplicated Plan Patient is a 22 year old male who presented to [facility] after being assessed in the community by [facility] due to impulsively drinking laundry detergent in an attempt for SI secondary to a fight with his girlfriend in which she told him to kill himself. Plan: 3 day notice 15 minute safety checks Restart home medications Referral to outpatient providers 03/31: Patient reports feeling fine today. Pt stated, I feel fine and safe. I got into an argument with my girlfriend; I was freaking out and then I drank the detergent. It was a really bad slip up. I've never done that before . Patient denies SI. Pt reports his current living situation is difficult; pt stated, I live in a house filled with cat piss and dog shit. I just need to grab my stuff and leave . Pt reports he would like referrals for outpatient providers. He is requesting to be discharged. His 3 day is up on 04/05. Continue with current tx plan. 04/01: Patient guarded and irritable during 1:1; laying in bed. Patient reports clonidine has been helpful with his anxiety. pt reports he plans on going to a friends house after I leave here and if he doesn't let me stay then I'll go to a halfway. It's not the first time I've been homeless . States he does want referrals to outpatient providers. Denies SI/HI/VH/AH at this time. Increased clonidine to 0.1mg Q4H PO PRN for anxiety. Zyprexa PRN increased to 5mg PO BID for agitation. 04/02: Continue current plans and regimen 04/03: Continue current regimen and plans with increase of clonidine and hydroxyzine doses Reason for continued inpatient stay Substantial Risk for: rapid decompensation Time Spent With Patient Time: Total time managing care of this patient today ____ minutes.
[2023-04-03 14:00] VITALS: BP 133/76; PULSE 76; RESP 18; TEMP 36.4; O2SAT 98
[2023-04-03] MEDS: Nicotine Polacrilex 2 MG GUM BUCCAL ×3 (14:02→19:16)
[2023-04-03] MEDS: cloNIDine HCL 0.2 MG TABLET PO ×2 (14:02→18:19)
[2023-04-03] MEDS: FLUoxetine HCl 20 MG CAPSULE PO (14:02)
[2023-04-03] MEDS: hydrOXYzine HCL 50 MG TABLET PO (14:45)
[2023-04-03] MEDS: OLANZapine 5 MG TABLET PO ×2 (15:47→20:51)
[2023-04-03] MEDS: traZODone HCL 50 MG TABLET PO (20:51)
[2023-04-03] MEDS: Melatonin 3 MG TABLET 9 MG PO (20:51)
[2023-04-03 20:58] VITALS: BP 107/67; PULSE 67; TEMP 36.4; O2SAT 98
[2023-04-04 07:15] VITALS: BP 94/58; PULSE 56
[2023-04-04 07:20] VITALS: BP 100/61; PULSE 53
--- NOTE | 2023-04-04 08:08 | PC.NURSE ---
During shift change report this morning Juanita Dye RN reported pt became agitated due to being woken when lab came for roommate. Pt requested clonidine .2 prn per order but BP 94/[address] Davsi gave telephone order for clonidine .1 x 1 now due to hypotension and bradycardia. Pt insistent on .2mg. Recheck VS: 100/[address] Davis offered 0.1mg. Per Juanita dye pt became agitated and swore - refused .1 and went back to his room. Per Juan Luis Castro A pt hit the exit sign once on his way back to his room. When I emerged from report pt was in bed with covers over his head appeared to be sleeping with regular RR 16.
--- NOTE | 2023-04-04 10:58 | P.PNPSI_ITS ---
Subjective Subjective Date of Service: 04/04/23 Reason For Visit: si Subjective Notes: Conditional Voluntary and 3 Day Interim History: Patient was seen and discussed in rounds today. Records and plans were reviewed. He continues to be isolative and in his room, sleeping till noon and does not want to be disturbed. This morning he actually had an episode of an xiety and agitation and his blood pressure was below 100 and when I only wanted to give him 0.1 mg of clonidine he became angry and refused and went back to bed. At he continues to be guarded and anxious. Medication Compliance: Yes Side effects from medications: No Attending Groups: Intermittent Review of Systems Review of Systems Yes Unobtainable due to mental status Mental Status Exam Mental Status Exam Narrative: Unable to be examined because of not wanting to be disturbed Diagnostics Vital Signs (24Hr): Vital Signs - 24 hr 04/03/23 14:00 04/03/23 20:58 04/04/23 07:15 Temperature 97.6 F 97.6 F Pulse Rate 76 67 56 Respiratory Rate 18 Blood Pressure 133/76 107/67 94/58 L Pulse Oximetry 98 98 Oxygen Delivery Method Room Air Room Air 04/04/23 07:20 Temperature Pulse Rate 53 Respiratory Rate Blood Pressure 100/61 Pulse Oximetry Oxygen Delivery Method BMI result Body Mass Index 18.2 Labs 03/29/23 12:22 03/29/23 12:22 Imaging Radiology Impressions: ITS Impressions Chest X-Ray 03/29/23 14:31 IMPRESSION: No acute disease Medications Medications Current Medications Acetaminophen (Acetaminophen 325 Mg Tablet) 650 mg PO Q6H PRN PRN Reason: Headache/Pain Mild Scale (1-3) Al Hydroxide/Mg Hydroxide (Magnesium Hydrox/Alum Hydrox 30 Ml Oral.Susp) 30 ml PO Q6H PRN PRN Reason: Heartburn/Nausea Clonidine HCl (Clonidine Hcl 0.2 Mg Tablet) 0.2 mg PO TID PRN; Protocol PRN Reason: Anxiety Last Admin: 04/03/23 18:19 Dose: 0.2 mg Fluoxetine HCl (Fluoxetine Hcl 20 Mg Capsule) 20 mg PO DAILY [facility] Last Admin: 04/03/23 14:02 Dose: 20 mg Hydroxyzine HCl (Hydroxyzine Hcl 50 Mg Tablet) 50 mg PO TID PRN PRN Reason: anxiety Last Admin: 04/03/23 14:45 Dose: 50 mg Magnesium Hydroxide (Milk Of Magnesia 30 Ml Oral.Susp) 30 ml PO DAILY PRN PRN Reason: Constipation Melatonin (Melatonin 3 Mg Tablet) 9 mg PO BEDTIME [facility] Last Admin: 04/03/23 20:51 Dose: 9 mg Nicotine Polacrilex (Nicotine Polacrilex 2 Mg Gum) 2 mg BUCCAL Q2H PRN PRN Reason: Nicotine Cravings Last Admin: 04/03/23 19:16 Dose: 2 mg Olanzapine (Olanzapine 5 Mg Tablet) 5 mg PO BEDTIME [facility] Last Admin: 04/03/23 20:51 Dose: 5 mg Olanzapine (Olanzapine 5 Mg Tablet) 5 mg PO BID PRN PRN Reason: Agitation Last Admin: 04/03/23 15:47 Dose: 5 mg Trazodone HCl (Trazodone Hcl 50 Mg Tablet) 50 mg PO BEDTIME [facility] Last Admin: 04/03/23 20:51 Dose: 50 mg Allergies Allergies Allergy/AdvReac Type Severity Reaction Status Date / Time Unable to Assess Allergy Verified 03/29/23 12:01 Assessment & Plan Assessment & Plan (1) MDD (major depressive disorder), recurrent episode, severe: Status: Acute Code(s): F33.2 - Major depressive disorder, recurrent severe without psychotic features (2) Suicidal ideation: Status: Acute Code(s): R45.851 - Suicidal ideations (3) Cocaine abuse: Status: Acute Code(s): F14.10 - Cocaine abuse, uncomplicated Plan Patient is a 22 year old male who presented to [facility] after being assessed in the community by [facility] due to impulsively drinking laundry detergent in an attempt for SI secondary to a fight with his girlfriend in which she told him to kill himself. Plan: 3 day notice 15 minute safety checks Restart home medications Referral to outpatient providers 03/31: Patient reports feeling fine today. Pt stated, I feel fine and safe. I got into an argument with my girlfriend; I was freaking out and then I drank the detergent. It was a really bad slip up. I've never done that before . Patient denies SI. Pt reports his current living situation is difficult; pt stated, I live in a house filled with cat piss and dog shit. I just need to grab my stuff and leave . Pt reports he would like referrals for outpatient providers. He is requesting to be discharged. His 3 day is up on 04/05. Continue with current tx plan. 04/01: Patient guarded and irritable during 1:1; laying in bed. Patient reports clonidine has been helpful with his anxiety. pt reports he plans on going to a friends house after I leave here and if he doesn't let me stay then I'll go to a assisted. It's not the first time I've been homeless . States he does want referrals to outpatient providers. Denies SI/HI/VH/AH at this time. Increased clonidine to 0.1mg Q4H PO PRN for anxiety. Zyprexa PRN increased to 5mg PO BID for agitation. 04/02: Continue current plans and regimen 04/03: Continue current regimen and plans with increase of clonidine and hydroxyzine dose 04/04: Continue current plans and regimen Reason for continued inpatient stay Substantial Risk for: rapid decompensation Time Spent With Patient Time: Total time managing care of this patient today ____ minutes.
[2023-04-04 13:24] VITALS: BP 122/71; PULSE 72
[2023-04-04] MEDS: cloNIDine HCL 0.2 MG TABLET PO ×2 (13:26→18:03)
[2023-04-04] MEDS: FLUoxetine HCl 20 MG CAPSULE PO (13:26)
[2023-04-04] MEDS: hydrOXYzine HCL 50 MG TABLET PO ×2 (14:30→18:51)
[2023-04-04] MEDS: Nicotine Polacrilex 2 MG GUM BUCCAL ×2 (14:30→16:43)
[2023-04-04] MEDS: OLANZapine 5 MG TABLET PO ×3 (18:03→21:19)
[2023-04-04 20:30] VITALS: BP 99/62; PULSE 55; RESP 16; TEMP 36.4; O2SAT 99
[2023-04-04] MEDS: traZODone HCL 50 MG TABLET PO (21:18)
[2023-04-04] MEDS: Melatonin 3 MG TABLET 9 MG PO (21:19)
[2023-04-05] MEDS: OLANZapine 5 MG TABLET PO (09:09)
[2023-04-05] MEDS: cloNIDine HCL 0.2 MG TABLET PO ×2 (09:09→13:31)
[2023-04-05] MEDS: FLUoxetine HCl 20 MG CAPSULE PO (09:10)
[2023-04-05] MEDS: Nicotine Polacrilex 2 MG GUM BUCCAL (09:10)
[2023-04-05 09:15] VITALS: BP 115/64; PULSE 60; RESP 18; TEMP 36.3; O2SAT 99
--- NOTE | 2023-04-05 13:05 | P.DS_ITS ---
DS: Providers Provider Date of Service: 04/05/23 Date of admission: 03/29/23 19:22 Date of discharge: 04/05/23 Primary care physician: Megan Jaramillo MD Admitting clinician: Dasia Jin Attending physician on admission: Dax Razo Attending physician on discharge: Rito Lacy Discharging clinician: Dasia Jin DS: Diagnosis Discharge Diagnosis (1) MDD (major depressive disorder), recurrent episode, severe: Status: Acute (2) Suicidal ideation: Status: Acute (3) Cocaine abuse: Status: Acute DS: Medications Discharge Medications Home Medications: Previous Rx's Medication Instructions Recorded fluoxetine 20 mg capsule 20 mg PO DAILY depressive disorder 04/05/23 30 days #30 caps hydroxyzine HCl 50 mg tablet 50 mg PO TID PRN anxiety 30 days 04/05/23 #90 tabs melatonin 3 mg tablet 9 mg PO BEDTIME insomnia 30 days 04/05/23 #90 tabs olanzapine 5 mg tablet 5 mg PO BEDTIME 30 days #30 tabs 04/05/23 trazodone 50 mg tablet 50 mg PO BEDTIME 30 days #30 tabs 04/05/23 Mental Status Exam Mental Status Exam Narrative: Pt is alert and oriented; behavior is cooperative, friendly and calm; dressed in casual attire; mood is described as good ; eye contact appropriate; Speech is normal rate, volume and prosody and not pressured; no psychomotor agitation/retardation present; thought process is organized and goal directed; Thought content is on tx; otherwise pertinent to relevant topics and without any delusional content, paranoid ideations or grandiosity; denies SI/HI. There is no evidence of perceptual disturbance. Patients insight and judgment are fair. Data Data Completed and Pending Completed studies during hospitalization [Text1]: 03/29/23 03/29/23 03/29/23 13:46 13:46 13:53 Urine Color Yellow Urine Appearance Clear Urine pH 8.0 Ur Specific [place] 1.025 Urine Protein Trace Urine Glucose (UA) Negative Urine Ketones 15 Urine Blood Negative Urine Nitrite Negative Ur Leukocyte Esterase Negative Urine Opiates Screen Not Detected Urine Fentanyl Screen Not Detected Ur Barbiturates Screen Not Detected Ur Phencyclidine Scrn Not Detected Ur Amphetamines Screen Not Detected U Benzodiazepines Scrn Not Detected Urine Cocaine Screen POSITIVE H U Marijuana (THC) Screen POSITIVE H Influenza Type A (PCR) NEGATIVE Influenza Type B (PCR) NEGATIVE RSV RNA Qual (PCR) NEGATIVE SARS-CoV-2 RNA (RT-PCR) NEGATIVE Imaging Diagnostic Imaging Impressions Chest X-Ray 03/29/23 14:31 IMPRESSION: No acute disease DS: Summary Hospital Course Hospital Course: Patient is a 22 year old male who presented to [facility] after being assessed in the community by [facility] due to impulsively drinking laundry detergent in an attempt for SI secondary to a fight with his girlfriend in which she told him to kill himself. Per crisis report, pt has been non-compliant with his mediations and taking care of himself or his living area, per report there are multiple unkempt animals around the house with feces on the floor. During admission assessment, pt was laying in bed with sheets over his head. Patient presents guarded, irritable and uncooperative. Pt refused to meet with T/W and stated, I don't want to be here. I just want to fucking sleep! Yes, you can start me back on my meds! . Pt denies SI at this time. Pt was informed that T/W would attempt to meet with him again tomorrow. Pt signed 3 day notice. Patient reports feeling fine today. Pt stated, I feel fine and safe. I got into an argument with my girlfriend; I was freaking out and then I drank the detergent. It was a really bad slip up. I've never done that before . Patient denies SI. Pt reports his current living situation is difficult; pt stated, I live in a house filled with cat piss and dog shit. I just need to grab my stuff and leave . Pt reports he would like referrals for outpatient providers. He is requesting to be discharged. His 3 day is up on 04/05. Patient guarded and irritable during 1:1; laying in bed. Patient reports clonidine has been helpful with his anxiety. pt reports he plans on going to a friends house after I leave here and if he doesn't let me stay then I'll go to a alf. It's not the first time I've been homeless . States he does want referrals to outpatient providers. Hydroxyzine increased to 50mg PO TID PRN anxiety. Pt reports feeling good today. He reports plan to stay at respite in [place] and try to find a job and new place to live . Pt plans on following up with his outpatient providers. He denies SI/HI/VH/AH at this time. Time spent discussing smoking cessation with patient: 3 to 10 minutes Status at Discharge Cognitive/behavioral status at discharge: Patient was interviewed prior to discharge and found to be fully oriented and without any SI or HI. Patient has insight and demonstrates good judgment in terms of wanting to pursue treatment. Patient is not in imminent risk of harm to self or others and has a safety plan that includes presenting to the closest ER or calling 911 if feeling unsafe. Patient has been observed closely by nursing and unit staff throughout admission; patient has not engaged in any behaviors that suggest dangerousness to self or others and has demonstrated appropriate behaviors and impulse control. Functional status at discharge: independent ambulation Overall status at discharge: patient is back to baseline Time Spent with Patient Time attestation: Total time managing care of this patient today _30___ minutes. Time spent: Less than 30 minutes Discharge Plan Discharge Anticipated Discharge Date/Time: 04/05/23 13:30 Patient Disposition: Xfer to Respite Facility Discharge Diagnosis: MDD, Cocaine abuse Referrals: [facility] [Provider Group] (May use walk in clinic as needed for immediate medical attention) Discharge Medications: New hydroxyzine HCl 50 mg Tablet 50 mg PO TID PRN (Reason: anxiety) 30 Days Qty: 90 0RF olanzapine 5 mg Tablet 5 mg PO BEDTIME 30 Days Qty: 30 0RF trazodone 50 mg Tablet 50 mg PO BEDTIME 30 Days Qty: 30 0RF Continued melatonin 3 mg tablet 9 mg PO BEDTIME 30 Days Qty: 90 0RF fluoxetine 20 mg capsule 20 mg PO DAILY 30 Days Qty: 30 0RF Discontinued trazodone 50 mg tablet 50 mg PO BEDTIME olanzapine 5 mg tablet 5 mg PO BEDTIME hydroxyzine HCl 25 mg tablet 25 mg PO TID PRN (Reason: anxiety) Discharge Orders: Discharge Order (Routine); Ordered 04/05/23 Ordered By: Dasia Jin Diet: Regular diet Activity on Discharge: As tolerated Stand Alone Forms: Patient Portal Discharge page, Community Support Care Plan Goals: Maintain mood and safe behaviors Take medications as prescribed Continue to pursue sobriety Practice coping skills Continue with outpatient providers and reach out to them as needed Health Concerns: Mood stability and behaviors Sobriety Plan of Treatment: Follow up with your PCP, psychiatric provider and other outpatient providers regarding above concerns Take medications as prescribed Assessment: Patient was interviewed prior to discharge and found to be fully oriented and without any SI or HI. Patient has insight and demonstrates good judgment in terms of wanting to pursue treatment. Patient is not in imminent risk of harm to self or others and has a safety plan that includes presenting to the closest ER or calling 911 if feeling unsafe. Patient has been observed closely by nursing and unit staff throughout admission; patient has not engaged in any behaviors that suggest dangerousness to self or others and has demonstrated appropriate behaviors and impulse control.
== END 2023-04-05 14:10 | DRG 751 ==
LOC: HO.ED 14:51 → HO.PADLT16 19:37
PROVIDERS: Admitting Provider Social Worker; Emergency Provider Student in an Organized Health Care Education/Training Program; PCP Internal Medicine; Responsible Provider Registered Nurse; Visit Provider Psychiatry & Neurology Psychiatry
DX: F33.2 Major depressive disorder, recurrent severe without psychotic features (principal); R45.851 Suicidal ideations; F14.10 Cocaine abuse, uncomplicated; F17.210 Nicotine dependence, cigarettes, uncomplicated; Z20.822 Contact with and (suspected) exposure to COVID-19; Z71.6 Tobacco abuse counseling; Z79.899 Other long term (current) drug therapy
CPT/HCPCS: 0241U; 36415; 71045; 80053; 80143; 80179; 80307; 81003; 83735; 84484; 85025; 85610; 85730; 93005; 99285

== ENCOUNTER → 2023-03-29 19:22 | Outpatient (BNV) | payer OTHER, SELFPAY | PROVIDERS: Admitting Provider Social Worker; Emergency Provider Student in an Organized Health Care Education/Training Program; PCP Internal Medicine; Responsible Provider Registered Nurse; Visit Provider Psychiatry & Neurology Psychiatry | DX: F33.2 Major depressive disorder, recurrent severe without psychotic features (principal); R45.851 Suicidal ideations; F14.10 Cocaine abuse, uncomplicated | CPT/HCPCS: 99231; 99232; 99238 ==

== ENCOUNTER → 2023-03-29 19:22 | Outpatient (BNV) | payer OTHER, SELFPAY | PROVIDERS: Admitting Provider Social Worker; Emergency Provider Student in an Organized Health Care Education/Training Program; PCP Internal Medicine; Responsible Provider Registered Nurse; Visit Provider Registered Nurse | DX: F33.2 Major depressive disorder, recurrent severe without psychotic features (principal); R45.851 Suicidal ideations; F14.10 Cocaine abuse, uncomplicated | CPT/HCPCS: 90792; 99231; 99232 ==

== ENCOUNTER 2023-04-11 20:49 | Emergency (ER) | payer OTHER, SELFPAY ==
--- NOTE | 2023-04-11 | ECG_ITS ---
Test Reason : bradycardia ?OD Blood Pressure : / mmHG Vent. Rate : 045 BPM Atrial Rate : 045 BPM P-R Int : 140 ms QRS Dur : 148 ms QT Int : 454 ms P-R-T Axes : 033 056 057 degrees QTc Int : 392 ms Sinus bradycardia Non-specific intra-ventricular conduction block Abnormal ECG When compared with ECG of 29-MAR-2023 12:15, Sinus rhythm has replaced Ectopic atrial rhythm Vent. rate has decreased BY 28 BPM QRS duration has increased ST elevation now present in Inferior leads Referred By: Samia Mallory Electronically Signed By:THOR ALBA
[2023-04-11 20:55] VITALS: BP 116/72; PULSE 74; O2SAT 98
[2023-04-11 21:10] VITALS: BP 107/58; PULSE 58; RESP 16; TEMP 36.6; O2SAT 100; BMI 19.5
--- NOTE | 2023-04-11 21:15 | PC.NURSE ---
security present and all clothing brought to decon and changed over.
--- OUTSIDE RECORDS SUMMARY | 2023-04-11 21:25 | XMS_ITS | Continuity of Care Document ---
Author Name Unknown Organization [facility] Address [address] [place] [address]- Care Team Providers Care Simulation Software Engineer Name Role Phone Sudeep Billings NP Primary Care Physician Encounter [facility] Date(s): 01/04/20 - 01/11/20 [facility] [address] [place] [address]- [place] States Encounter Diagnosis Neck and shoulder pain(Discharge Diagnosis) - 01/04/20 Attending Physician: Sudeep Billings NP Allergies, Adverse Reactions, Alerts Substance Reaction Severity Status NKA Active Immunizations Given and Recorded Vaccine Date Status Refusal Reason influenza virus vaccine, inactivated 11/22/16 Give n influenza virus vaccine, inactivated 04/04/14 Give n influenza virus vaccine, inactivated 05/03/13 Give n influenza virus vaccine, inactivated 06/05/12 Give n influenza virus vaccine, inactivated 10/18/11 Give n Hepatitis A Pediatric Vaccine 11/22/16 Given Human Papillomavirus Vaccine 09/04/13 Given Human Papillomavirus Vaccine 05/03/13 Given Human Papillomavirus Vaccine 02/20/13 Given tetanus/diphtheria/pertussis, acel(Tdap) 02/20/13 Given Meningococcal Conjugate Vaccine 02/20/13 Given Varicella Virus Vaccine 01/30/07 Given Varicella Virus Vaccine 05/31/03 Given Measles/Mumps/Rubella Virus Vaccine 01/30/07 Given Measles/Mumps/Rubella Virus Vaccine 05/31/03 Given Poliovirus Vaccine, Inactivated 01/30/07 Given Poliovirus Vaccine, Inactivated 12/18/03 Given Poliovirus Vaccine, Inactivated 08/15/03 Given Poliovirus Vaccine, Inactivated 05/31/03 Given diphtheria/tetanus/pertussis, acel(DTaP) 01/30/07 Given diphtheria/tetanus/pertussis, acel(DTaP) 04/13/05 Given diphtheria/tetanus/pertussis, acel(DTaP) 12/18/03 Given diphtheria/tetanus/pertussis, acel(DTaP) 08/15/03 Given diphtheria/tetanus/pertussis, acel(DTaP) 05/31/03 Given Influenza Virus Vaccine (oldterm) 07/05/06 Given Influenza Virus Vaccine (oldterm) 05/31/06 Given Pneumococcal Conjugate (PCV7) (oldterm) 08/15/03 G iven Pneumococcal Conjugate (PCV7) (oldterm) 05/31/03 G iven Hepatitis B Vaccine (old term) 06/04/03 Given Hepatitis B Vaccine (old term) 01 Given Hepatitis B Vaccine (old term) 01 Given Haemophilus B Conj Vaccine (oldterm) 05/31/03 Give n Medications cloNIDine 0.1 mg oral tablet 0.1 mg, 1, tablet, By Mouth, 3 times a day, # 90 tablet, Refills 0, Tot. Refills 0, Maintenance, 09/28/19 13:39:00 EST, Route to Pharmacy Electronically, [facility]/pharmacy #[id number], 189, cm, 09/04/19 14:59:00 EST, Height, 55.6, kg, 09/04/19 14:59:00 EST, Dry... Start Date: 09/28/19 Status: Ordered divalproex sodium 250 mg oral tablet, extended release 3 tablet = 750 mg, By Mouth, Daily at bedtime, # 90 tablet, 0 Refills, Maintenance, 09/28/19 13:39:00 EST, ER Tablet, [facility]/pharmacy #[id number], 189, cm, 09/04/19 14:59:00 EST, Height, 55.6, kg, 09/04/19 14:59:00 EST, Dry Weight Start Date: 09/28/19 Status: Ordered ibuprofen 400 mg oral tablet 400 mg, By Mouth, Every 6 hours, PRN, Refills 0, Maintenance, Pain , Mild, 09/04/19 14:47:00 EST Start Date: 09/04/19 Status: Ordered Lexapro 10 mg oral tablet 2 tablet = 20 mg, By Mouth, Daily in AM, # 180 tablet, 0 Refills, Maintenance, 10/29/19 7:57:00 EDT, Tablet, [facility] #[id number], 179.3, cm, 10/11/19 8:00:00 EDT, Height, 61, kg, 10/11/19 8:00:00 EDT,Dry Weight Start Date: 10/29/19 Stop Date: 01/27/20 Status: Ordered Multivitamin Tablet 1 tablet, By Mouth, Daily, 0 Refills, Maintenance, 09/04/19 14:47:00 EST, Tablet Start Date: 09/04/19 Status: Ordered Remeron 15 mg oral tablet 1 tablet = 15 mg, By Mouth, Daily at bedtime, # 30 tablet, 0 Refills, Maintenance, 09/28/19 13:39:00 EST, Tablet, [facility]/pharmacy #[id number], 189, cm, 09/04/19 14:59:00 EST, Height, 55.6, kg, 09/04/19 14:59:00 EST, Dry Weight Start Date: 09/28/19 Status: Ordered Problem List Condition Effective Dates Status Health Status Inform ant Back pain(Confirmed) Active Child in welfare custody(Confirmed) Active Depression(Confirmed) Active Neck and shoulder pain(Confirmed) Active Current smoker(Confirmed) Active Diagnosis Diagnosis Type Effective Dates Health Status Cl inical Service Informant Neck and shoulder pain Discharge Diagnosis 01/04/20 Social History Social History 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
--- OUTSIDE RECORDS SUMMARY | 2023-04-11 21:25 | XMS_ITS | Continuity of Care Document ---
Author Name Unknown Organization [facility] Address [address] [place] [address]- Care Team Providers Care Story Reader Name Role Phone Manuelito VELASCO, Sudeep Weber Primary Care Physician [phone] Encounter [facility] Date(s): 01/04/20 - 02/03/20 [facility] [address] [place] [address]- [facility] Attending Physician: Aiyana Pop Admitting Physician: Aiyana Pop Referring Physician: AdmtrAiyana Allergies, Adverse Reactions, Alerts Substance Reaction Severity [...] 09/28/19 13:39:00 EST, Route to Pharmacy Electronically, [facility]/pharmacy #[id number], 189, cm, 09/04/19 14:59:00 EST, Height, 55.6, kg, 09/04/19 14:59:00 EST, Dry... Start Date: 09/28/19 Status: Ordered divalproex sodium 250 mg oral tablet, extended release 3 tablet = 750 mg, By Mouth, Daily at bedtime, # 90 tablet, 0 Refills, Maintenance, 09/28/19 13:39:00 EST, ER Tablet, [facility]/pharmacy #[id number], 189, cm, 09/04/19 14:59:00 EST, Height, [...] 0 Refills, Maintenance, 09/28/19 13:39:00 EST, Tablet, [facility]/pharmacy #[id number], 189, cm, 09/04/19 14:59:00 EST, Height, 55.6, kg, 09/04/19 14:59:00 EST, Dry Weight Start Date: 09/28/19 Status: Ordered Problem List Condition Effective Dates Status Health Status Inform ant Back pain(Confirmed) Active Child in welfare custody(Confirmed) Active Depression(Confirmed) Active Neck and shoulder pain(Confirmed) Active Current smoker(Confirmed) Active Social History Social History Type Response Smoking Status Current every day sm oker; Tobacco user in household: Yes entered on: 08/22/15 Sex
--- OUTSIDE RECORDS SUMMARY | 2023-04-11 21:25 | XMS_ITS | Continuity of Care Document ---
Author Name Unknown Organization [facility] Address [address] [place] [id number]- Care Team Providers Care Dance Coach Name Role Phone Jeny Jones Primary Care Physician Encounter [facility] Date(s): 09/01/19 - 09/04/[address] [address]- [facility] Discharge Disposition: A-D/C Home Attending Physician: Tamie Roche MD Admitting Physician: Tamie Roche MD Referring Physician: Not on Staff, Referring MD Allergies, Adverse Reactions, Alerts Substance Reaction Severity [...] tablet, By Mouth, 3 times a day, Refills 0, Maintenance, 09/04/19 14:46:00 EST Start Date: 09/04/19 Status: Ordered divalproex sodium 250 mg oral tablet, extended release 3 tablet = 750 mg, By Mouth, Daily at bedtime, 0 Refills, Maintenance, 09/04/19 14:46:00 EST, ER Tablet Start Date: 09/04/19 Status: Ordered ibuprofen 400 mg oral tablet 400 mg, By Mouth, Every 6 hours, PRN, Refills 0, Maintenance, Pain , Mild, 09/04/19 14:47:00 EST Start Date: 09/04/19 Status: Ordered Lexapro 10 mg oral tablet 2 tablet = 20 mg, By Mouth, Daily in AM, 0 Refills, Maintenance, 09/04/19 14:46:00 EST, Tablet Start Date: 09/04/19 Status: Ordered Multivitamin Tablet 1 tablet, By Mouth, Daily, 0 Refills, Maintenance, 09/04/19 14:47:00 EST, Tablet Start Date: 09/04/19 Status: Ordered Remeron 15 mg oral tablet 1 tablet = 15 mg, By Mouth, Daily at bedtime, 0 Refills, Maintenance, 09/04/19 14:47:00 EST, Tablet Start Date: 09/04/19 Status: Ordered venlafaxine 37.5 mg oral capsule, extended release 37.5 mg, 1, capsule, By Mouth, Daily, # 30 capsule, Refills 0, Tot. Refills 0, Maintenance, 05/17/18 9:45:27 EDT, Route to Pharmacy Electronically, [facility] [id number], [facility] Start Date: 05/17/18 Status: Ordered Problem List Condition Effective Dates Status Health Status Inform ant Child in welfare custody(Confirmed) Active Depression(Confirmed) Active Viral URI with cough(Confirmed) Active Vital Signs Most recent to oldest [Reference Range]: 1 2 3 Height 189 cm (09/04/19 2:59 PM) 189 cm (09/04/19 7:54 AM) 189 cm (09/02/19 8:44 PM) Weight 55.6 kg (09/04/19 2:59 PM) 55.6 kg (09/04/19 7:54 AM) 55.6 kg (09/02/19 8:44 PM) Oxygen Saturation [94-100 %] 100 % (09/04/19 2:59 PM) 100 % (09/04/19 7:54 AM) 100 % (09/02/19 8:44 PM) Pulse Rate [55-90 bpm] 62 bpm (09/04/19 2:59 PM) 49 bpm *L* (09/04/19 7:54 AM) 64 bpm (09/02/19 8:44 PM) Body Mass Index [18.5-24.99] 15.57 *L* (09/04/19 2:59 PM) 15.57 *L* (09/04/19 7:54 AM) 15.57 *L* (09/02/19 8:44 PM) Blood Pressure [80-130/50-80 mm Hg] 104/58mm Hg (09/04/19 2:59 PM) 107/67mm Hg (09/04/19 7:54 AM) 107/56mm Hg (09/02/19 8:44 PM) Respiratory Rate [16-30 br/min] 18 br/min (09/04/19 2:59 PM) 18 br/min (09/04/19 7:54 AM) 12 br/min *L* (09/02/19 8:44 PM) Temperature [96.8-100.4 DegF] 97.4 DegF (09/04/19 2:59 PM) 97.7 DegF (09/04/19 7:54 AM) 98.2 DegF (09/02/19 8:44 PM) Mode of Delivery (Oxygen) Room air (09/04/19 2:59 PM) Room air (09/04/19 7:54 AM) Room air (09/02/19 8:44 PM) Blood pressure sites Arm, left (09/04/19 2:59 PM) Arm, left (09/04/19 7:54 AM) Arm, right (09/02/19 8:44 PM) Temperature Route Oral (09/04/19 2:59 PM) Oral (09/04/19 7:54 AM) Oral (09/02/19 8:44 PM) Dry Weight 55.6 kg (09/04/19 2:59 PM) 55.6 kg (09/04/19 7:54 AM) 55.6 kg (09/02/19 8:44 PM) Social History Social History 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
--- OUTSIDE RECORDS SUMMARY | 2023-04-11 21:25 | XMS_ITS | Continuity of Care Document ---
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 abuse alcohol or tempt you to drink. ?? Follow-up care Follow up with your healthcare provider, or as advised. Contact these groups to get help: ??? Alcoholics Anonymous (AA) at www.aa.org. Or check the phone book for meetings near you. ??? National Alcohol and Substance Abuse Information Center (NASAIC) at www.addictioncareTellme.Your Policy Manager or 361-649-7186 ??? National [place] on Alcoholism and Drug Dependence (NCADD) at www.ncadd.org or 200-NPD-OOGB (449-726-8459) ?? Call 911 Call 911 if any of these occur: ??? Trouble breathing or slow, irregular breathing ??? Chest pain ??? Sudden weakness on one side of your body or sudden trouble speaking ??? Heavy bleeding or vomiting blood ??? Very drowsy or trouble awakening ??? Fainting or loss of consciousness ??? Rapid heart rate ??? Seizure ?? When to seek medical care Call your healthcare provider right away if any of these occur:? Confusion ??? Seeing, hearing, or feeling things that aren???t there (hallucinations) ??? Pain in your upper belly that gets worse ??? Vomiting that continues, vomiting with blood, or black or tarry stools ??? Severe shakiness ?? Last Reviewed Date: 2021 ?? 8808-3588 [employer]. All rights reserved. This information is not intended as a substitute for professional medical care. Always follow your healthcare professional's instructions. ?? * Ramila Krishna DO: PERFORM Event Display: Patient Education Leaflets Authored Date: [id number] Drug Abuse ?? [id number] Drug Abuse Use and abuse of drugs or medicines may lead to addiction or dependence. You may hear drug abuse oraddiction called substance use disorder (VLADIMIR). Examples of illegal drugs include amphetamines (alsoknown as speed or crank), methamphetamines (meth), cocaine, heroin, bath salts, and hallucinogens (such as MDMA, ecstasy, PCP, mescaline, and LSD). Xylazine is a sedative and pain reliever approved only for animals. It's not approved or safe for people. It's known by the street name tranq. Xylazine has been found in street drugs, especially heroin and fentanyl. It has been linked to overdoses and . Severe side effects from xylazine include slow heart beat and breathing, low blood pressure, skin sores, and coma. In some states, marijuana is an illegal drug. Medicines include prescription medicines, sedatives, and sleeping pills. Once addiction or dependence happens, you are at greater risk for the problems below. Social and personal problems ??? Craving for the drug and not being able to stop using even though you think you want to stop (psychological addiction) ??? Drug withdrawal symptoms if you stop takingthe drug (physical dependence) ??? Loss of friends and family ??? School or work problems ??? Arrest, conviction, and fci sentence for possession of an illegal substance or for driving under the infl uence ?? Health problems ??? Stroke, heart attack, heart failure, and kidney failure ??? Accidental injuriesto yourself or others while you are under the influence of a drug (in a car or at home) ??? HIV infection. This is a much greater risk if you use IV drugs. ??? Skin infections ??? Other sexually transmitted infections (STIs), such as herpes, chlamydia, and gonorrhea ??? Severe and fatal infection of the heart valves if you use IV drugs ??? Hepatitis B or C ??? Dementia, mood disorders, persistenthallucinations (particularly with hallucinogens) ??? Dental problems from methamphetamine abuse ??? from overdose ?? Home care The following suggestions can help you care for yourself at home: ??? Admit you have a drug problem. Ask for help from your family and close friends. ??? Seek professional help. This could be one-on-one therapy or counseling. There are also outpatient, inpatient, and residential drug treatment programs. ??? Join a self-help group for drug abuse. ??? Stay away from friends who abuse drugs or temptyou to continue abusing drugs. ??? Eat a balanced diet and start a regular exercise program. ?? Follow-up care Follow up with your healthcare provider, or as advised. Contact 1 of the resources below for help: ??? Substance Abuse and Mental Health Services Administration (SAMHSA) at www.samhsa.gov/findtreatment ??? National [place] on Alcoholism and Drug Dependence at www.ncadd.org ??? Narcotics Anonymous at www.na.org ?? Call 911 Call 911 right away if any of these occur: ??? Seizure ??? Hard time breathing or slow, irregular breathing ??? Chest pain ??? Sudden weakness on 1 side of your body or sudden trouble speaking ??? Very drowsy or trouble waking up ??? Fainting or loss of consciousness ??? Fast heart rate ??? Very slow heart rate ?? When to get medical care Call your healthcare provider if any of these occur: ??? Agitation, anxiety, or unable to sleep ???Unintended weight loss. This means more than 10 to 15 pounds over 3 months. ??? Fever of 100.4??F (38??C) or higher, or as advised by your provider ??? Shortness of breath ??? Cough with colored sputum ??? Redness, swelling, or tenderness at an injection site ??? You think counseling or drug rehabilitation services are needed to prevent additional drug use ?? Last Reviewed Date: 2022 ?? 6725-4272 [employer] All rights reserved. This information is not intended as a substitute for professional medical care. Always follow your healthcare professional's instructions. ?? Patient Care team information Care Team Personnel Name: Megan Jaramillo MD Position: [facility] Physician - Primary Care Member Role: PCP Address: Address: [address] [place] [address]- Name: *[facility], ED Attending Position: [facility] ED Attendings Patient Name: Neville RAYA, Bhumi Position: [facility] ED RN W/OE and Tasks Member Role: Patient Care Provider Name: Ramila Krishna DO Position: [facility] Resident Member Role: Admitting Physician Address: Address: [address] [place] [address] [place] [address]- Care Team Related Persons Name: JANNETH CHO Name: ALDO VIEIRA Address: home [address] [place] [address] Name: DEZ VIEIRA Address: home [address] [place] [address] Name: EUSEBIO JAMES Address: home [address] [address] Name: JULIET LAZO Address: home [address] [place] [address]
--- OUTSIDE RECORDS SUMMARY | 2023-04-11 21:25 | XMS_ITS | Continuity of Care Document ---
Author Name Unknown Organization [facility] Address [address] [place] [address]- Care Team Providers Care Graphic Art Designer Name Role Phone Manuelito VELSACO, Sudeep Weber Primary Care Physician [phone] [facility]counter [facility] Date[facility]): [facility] - [facility]/19 [facility] [address] [place] [address]- [facility] Attending Physician: Aiyana Pop Admitting Physician: [...] 09/28/19 13:39:00 EST, Route to Pharmacy Electronically, [facility]/pharmacy #[id number], 189, cm, 09/04/19 14:59:00 EST, Height, 55.6, kg, 09/04/19 14:59:00 EST, Dry... Start Date: 09/28/19 Status: Ordered divalproex sodium 250 mg oral tablet, extended release 3 tablet = 750 mg, By Mouth, Daily at bedtime, # 90 tablet, 0 Refills, Maintenance, 09/28/19 13:39:00 EST, ER Tablet, [facility]/pharmacy #[id number], 189, cm, 09/04/19 14:59:00 EST, Height, [...] 0 Refills, Maintenance, 09/28/19 13:39:00 EST, Tablet, [facility]/pharmacy #[id number], 189, cm, 09/04/19 14:59:00 EST, Height, [...]
--- OUTSIDE RECORDS SUMMARY | 2023-04-11 21:25 | XMS_ITS | Continuity of Care Document ---
Author Name Unknown Organization [facility] Address [address] [place] [address]- Care Team Providers Care Librarian Special Library Name Role Phone Manuelito VELASCO, Sudeep Weber Primary Care Physician [place] [facility] [place] 12/04/[place] - 12/05/[address] [address]- Encounter Diagnosis Scaphoid fracture(Final) - 12/05/21 Discharge Disposition: A-D/C Home Attending Physician: Jaime Hallman MD Admitting Physician: Jaime Hallman MD Referring Physician: Not on Staff, Referring [...] 09/28/19 13:39:00 EST, Route to Pharmacy Electronically, [facility]/pharmacy #[id number], 189, cm, 09/04/19 14:59:00 EST, Height, 55.6, kg, 09/04/19 14:59:00 EST, Dry... Start Date: 09/28/19 Status: Ordered divalproex sodium 250 mg oral tablet, extended release 3 tablet = 750 mg, By Mouth, Daily at bedtime, # 90 tablet, 0 Refills, Maintenance, 09/28/19 13:39:00 EST, ER Tablet, [facility]/pharmacy #[id number], 189, cm, 09/04/19 14:59:00 EST, Height, 55.6, kg, 09/04/19 14:59:00 EST, Dry Weight Start Date: 09/28/19 Status: Ordered ibuprofen 400 mg oral tablet 400 mg, By Mouth, Every 6 hours, PRN, Refills 0, Maintenance, Pain , Mild, 09/04/19 14:47:00 EST Start Date: 09/04/19 Status: Ordered ibuprofen 600 mg oral tablet 600 mg, 1, tablet, By Mouth, 4 times a day, PRN, with food or milk, # 30 tablet, Refills 0, Tot. Refills 0, Maintenance, Pain, 12/05/21 2:42:00 EDT, Route to Pharmacy Electronically, [facility]/pharmacy #[id number], Partial fill upon patient request, 56.9, kg, ... Start Date: 12/05/21 Status: Ordered Lexapro 10 mg oral tablet [...] 0 Refills, Maintenance, 09/28/19 13:39:00 EST, Tablet, [facility]/pharmacy #[id number], 189, cm, 09/04/19 14:59:00 EST, Height, 55.6, kg, 09/04/19 14:59:00 EST, Dry Weight Start Date: 09/28/19 Status: Ordered Tylenol 325 mg oral tablet 650 mg, 2, tablet, By Mouth, Every 4 hours, PRN, # 50 tablet, Refills 0, Tot. Refills 0, Maintenance, for pain, 12/05/21 2:42:00 EDT, Route to Pharmacy Electronically, [facility]/pharmacy #[id number], Partial fill upon patient request if the prescription is for a... Start Date: 12/05/21 Status: Ordered Problem List Condition Effective Dates Status Health Status Inform ant Back pain(Confirmed) Active Child in welfare custody(Confirmed) Active Depression(Confirmed) Active Neck and shoulder pain(Confirmed) Active Current smoker(Confirmed) Active Results Radiology Reports * Exam Date Time Procedure Performing Provider Status 12/04/21 7:52 PM Wrist Comp Min 3 Views Left Jesu Lozada; Auth (Verified) Notes: (Wrist Comp Min 3 Views Left) Reason For Exam: with Pain;Trauma RESULT: Wrist Comp Min 3 Views Left Examination: Left forearm and left wrist performed on 12/04/2021. History: Hx of Present Illness: hyperextension to left wrist 2 days ago, c o left wrist pain; Reason: Trauma; with Pain; Clinical Question(s): Fracture; Special Instructions: This is a protocol film and radiologist should call any findings to the Charge Nurse Findings: Frontal and lateral views of the left forearm and frontal, oblique, lateral, and scaphoid views of the left wrist are submitted. There is cortical irregularity at the medial aspect of the distal pole of the scaphoid, consistent with a nondisplaced fracture. No additional fractures are seen within the wrist or forearm. Soft tissue swelling overlies the wrist. IMPRESSION: Scaphoid fracture. An Munday message has been communicated via the SocialEars system on 12/04/2021 7:55 PM, Message ID [id number]. WSN: [id number] Ordering Physician: Ananya Rolon Dictated By: Tonya Bhatti MD Dictated Date/Time: 12/04/21 7:55 pm Reviewed By: Tonya Bhatti MD Signed By: Tonya Bhatti MD Signed Date/Time: 12/04/21 7:55 pm Transcribed By: ANGI Transcribed Date/Time: 12/04/21 7:53 pm * Exam Date Time Procedure Performing Provider Status 12/04/21 7:52 PM Forearm 2 Views Left Josh Lozada [facility] (Verified) Notes: (Forearm 2 Views Left) Reason For Exam: with Pain;Trauma RESULT: Forearm 2 Views Left Examination: Left forearm and left wrist performed on 12/04/2021. History: Hx of Present Illness: hyperextension to left wrist 2 days ago, c o left wrist pain; Reason: Trauma; with Pain; Clinical Question(s): Fracture; Special Instructions: This is a protocol film and radiologist should call any findings to the Charge Nurse Findings: Frontal and lateral views of the left forearm and frontal, oblique, lateral, and scaphoid views of the left wrist are submitted. There is cortical irregularity at the medial aspect of the distal pole of the scaphoid, consistent with a nondisplaced fracture. No additional fractures are seen within the wrist or forearm. Soft tissue swelling overlies the wrist. IMPRESSION: Scaphoid fracture. An Munday message has been communicated via the SocialEars system on 12/04/2021 7:55 PM, Message ID [id number]. WSN: [id number] Ordering Physician: Ananya Rolon Dictated By: Tonya Bhatti MD Dictated Date/Time: 12/04/21 7:55 pm Reviewed By: Tonya Bhatti MD Signed By: Tonya Bhatti MD Signed Date/Time: 12/04/21 7:55 pm Transcribed By: ANGI Transcribed Date/Time: 12/04/21 7:53 pm Vital Signs Most recent to oldest [Reference Range]: 1 2 3 Weight 56.9 kg (12/04/21 8:53 PM) Oxygen Saturation [94-100 %] 98 % (12/05/21 2:13 AM) 100 % (12/05/21 12:52 AM) 100 % (12/04/21 11:29 PM) Pulse Rate [55-90 bpm] 61 bpm (12/05/21 2:13 AM) 88 bpm (12/05/21 12:52 AM) 51 bpm *L* (12/04/21 11:29 PM) Blood Pressure [90-138/55-84 mm Hg] 117/65mm Hg (12/05/21 2:13 AM) 113/60mm Hg (12/05/21 12:52 AM) 113/60mm Hg (12/04/21 11:29 PM) Respiratory Rate [16-30 br/min] 16 br/min (12/05/21 2:13 AM) 18 br/min (12/04/21 11:29 PM) 16 br/min (12/04/21 8:53 PM) Temperature [96.8-100.4 DegF] 97.9 DegF (12/04/21 11:29 PM) 97.5 DegF (12/04/21 10:18 PM) 97.9 DegF (12/04/21 8:53 PM) Mode of Delivery (Oxygen) Room air (12/05/21 2:13 AM) Room air (12/05/21 12:52 AM) Room air (12/04/21 11:29 PM) Blood pressure sites Arm, right (12/05/21 2:13 AM) Arm, right (12/05/21 12:52 AM) Arm, left (12/04/21 11:29 PM) Temperature Route Oral (12/04/21 11:29 PM) Oral (12/04/21 10:18 PM) Oral (12/04/21 8:53 PM) Dry Weight 56.9 kg (12/04/21 8:53 PM) Weight Obtained Via Standing scale (12/04/21 8:53 PM) Dry Weight Obtained Via Standing scale (12/04/21 8:53 PM) Social History Social History 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
--- OUTSIDE RECORDS SUMMARY | 2023-04-11 21:25 | XMS_ITS | Continuity of Care Document ---
Author Name Unknown Organization [facility] Address [address] [place] [address]- Care Team Providers Care Rod And Tube Straightener Name Role Phone Manuelito VELASCO, Sudeep Weber Primary Care Physician [phone] [facility] Date(s): 09/28/19 - 10/28/19 [facility] [address] [place] [address]- [facility] Attending Physician: Ethan Thompson MD Allergies, Adverse Reactions, Alerts Substance Reaction [...] 13:39:00 EST, Route to Pharmacy Electronically, [facility]/pharmacy #[id number], 189, cm, 09/04/19 14:59:00 EST, Height, 55.6, kg, 09/04/19 14:59:00 EST, Dry... Start Date: 09/28/19 Status: Ordered divalproex sodium 250 mg oral tablet, extended release 3 tablet = 750 mg, By Mouth, Daily at bedtime, # 90 tablet, 0 Refills, Maintenance, 09/28/19 13:39:00 EST, ER Tablet, [facility]/pharmacy #[id number], 189, cm, 09/04/19 14:59:00 EST, Height, 55.6, kg, 09/04/19 14:59:00 EST, Dry Weight Start Date: 09/28/19 Status: Ordered ibuprofen 400 mg oral tablet 400 mg, By Mouth, Every 6 hours, PRN, Refills 0, Maintenance, Pain , Mild, 09/04/19 14:47:00 EST Start Date: 09/04/19 Status: Ordered Lexapro 10 mg oral tablet 2 tablet = 20 mg, By Mouth, Daily in AM, # 60 tablet, 0 Refills, Maintenance, 09/28/19 13:39:00 EST, Tablet, [facility]/pharmacy #[id number], 189, cm, 09/04/19 14:59:00 EST, Height, 55.6, kg, 09/04/19 14:59:00 EST, Dry Weight Start Date: 09/28/19 Status: Ordered Multivitamin Tablet 1 tablet, By Mouth, Daily, 0 Refills, Maintenance, 09/04/19 14:47:00 EST, Tablet Start Date: 09/04/19 Status: Ordered Remeron 15 mg oral tablet 1 tablet = 15 mg, By Mouth, Daily at bedtime, # 30 tablet, 0 Refills, Maintenance, 09/28/19 13:39:00 EST, Tablet, [facility]/pharmacy #[id number], 189, cm, 09/04/19 14:59:00 EST, Height, 55.6, kg, 09/04/19 14:59:00 EST, Dry Weight Start Date: 09/28/19 Status: Ordered Problem List Condition Effective Dates Status Health Status Inform ant Back pain(Confirmed) Active Child in welfare custody(Confirmed) Active Depression(Confirmed) Active Neck and shoulder pain(Confirmed) Active Viral URI with cough(Confirmed) Active Social History Social History 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
--- OUTSIDE RECORDS SUMMARY | 2023-04-11 21:25 | XMS_ITS | Continuity of Care Document ---
Author Name Unknown Organization [facility] Address [address] [place] [address]- Care Team Providers Care Car Varnisher Name Role Phone Sudeep Billings NP Primary Care Physician [phone] [place] [facility] [place]): 11/09/19 - 11/16/19 [facility] [address] [place] [address]- [place] Encounter Diagnosis Depression(Discharge Diagnosis) - 11/09/19 Attending Physician: Sudeep Billings NP Allergies, Adverse [...] 09/28/19 13:39:00 EST, Route to Pharmacy Electronically, [facility]/pharmacy #[id number], 189, cm, 09/04/19 14:59:00 EST, Height, 55.6, kg, 09/04/19 14:59:00 EST, Dry... Start Date: 09/28/19 Status: Ordered divalproex sodium 250 mg oral tablet, extended release 3 tablet = 750 mg, By Mouth, Daily at bedtime, # 90 tablet, 0 Refills, Maintenance, 09/28/19 13:39:00 EST, ER Tablet, [facility]/pharmacy #[id number], 189, cm, 09/04/19 14:59:00 EST, [...] 0 Refills, Maintenance, 10/29/19 7:57:00 EDT, Tablet, [facility]/pharmacy #[id number], 179.3, cm, 10/11/19 8:00:00 EDT, Height, [...] 0 Refills, Maintenance, 09/28/19 13:39:00 EST, Tablet, [facility]/pharmacy #[id number], 189, cm, 09/04/19 14:59:00 EST, Height, 55.6, kg, 09/04/19 14:59:00 EST, Dry Weight Start Date: 09/28/19 Status: Ordered Problem List Condition Effective Dates Status Health Status Inform ant Back pain(Confirmed) Active Child in welfare custody(Confirmed) Active Depression(Confirmed) Active Neck and shoulder pain(Confirmed) Active Current smoker(Confirmed) Active Diagnosis Diagnosis Type Effective Dates Health Status Clini cira Service Informant Depression Discharge Diagnosis 11/09/19 Social History Social History Type Response Smoking Status Current every day sm oker; Tobacco user in household: Yes entered on: 08/22/15 Sex
--- OUTSIDE RECORDS SUMMARY | 2023-04-11 21:25 | XMS_ITS | Continuity of Care Document ---
Author Name Unknown Organization [facility] Address [address] [place] [address]- Care Team Providers Care Twist Packer Name Role Phone Sudeep Billings NP Primary Care Physician [phone] [facility] Date(s): 09/28[facility]19 - 10/31/19 [facility] [address] [place] [address]- [facility] Attending Physician: Sudeep Billings NP Allergies, Adverse [...] 09/28/19 13:39:00 EST, Route to Pharmacy Electronically, [facility]/pharmacy #[id number], 189, cm, 09/04/19 14:59:00 EST, Height, 55.6, kg, 09/04/19 14:59:00 EST, Dry... Start Date: 09/28/19 Status: Ordered divalproex sodium 250 mg oral tablet, extended release 3 tablet = 750 mg, By Mouth, Daily at bedtime, # 90 tablet, 0 Refills, Maintenance, 09/28/19 13:39:00 EST, ER Tablet, [facility]/pharmacy #[id number], 189, cm, 09/04/19 14:59:00 EST, Height, [...] 0 Refills, Maintenance, 10/29/19 7:57:00 EDT, Tablet, [facility]/pharmacy #[id number], 179.3, cm, 10/11/19 8:00:00 EDT, Height, [...] 0 Refills, Maintenance, 09/28/19 13:39:00 EST, Tablet, [facility]/pharmacy #[id number], 189, cm, 09/04/19 14:59:00 EST, Height, [...]
--- OUTSIDE RECORDS SUMMARY | 2023-04-11 21:25 | XMS_ITS | Continuity of Care Document ---
Author Name Unknown Organization [facility] Address [address] [place] [address]- Care Team Providers Care Board Of Education Secretary Name Role Phone Manuelito VELASCO, Sudeep Weber Primary Care Physician En[place] [facility] [place] Date(s): 10/11/19 - 10/18/19 [facility] [address] [place] [address] Encounter Diagnosis Annual physical exam(Discharge Diagnosis) - 10/11/19 Neck and shoulder pain(Discharge Diagnosis) - 10/11/19 Back pain(Discharge Diagnosis) - 10/11/19 Toe pain, left(Discharge Diagnosis) - 10/11/19 Depression(Discharge Diagnosis) - 10/11/19 Attending Physician: Clement Arriola MD Allergies, Adverse Reactions, Alerts Substance Reaction [...] 13:39:00 EST, Route to Pharmacy Electronically, [facility]/pharmacy #[id number], 189, cm, 09/04/19 14:59:00 EST, Height, 55.6, kg, 09/04/19 14:59:00 EST, Dry... Start Date: 09/28/19 Status: Ordered divalproex sodium 250 mg oral tablet, extended release 3 tablet = 750 mg, By Mouth, Daily at bedtime, # 90 tablet, 0 Refills, Maintenance, 09/28/19 13:39:00 EST, ER Tablet, [facility]/pharmacy #[id number], 189, cm, 09/04/19 14:59:00 [...] Refills, Maintenance, 09/28/19 13:39:00 EST, Tablet, [facility]/pharmacy #[id number], 189, cm, 09/04/19 14:59:00 [...] Refills, Maintenance, 09/28/19 13:39:00 EST, Tablet, [facility]/pharmacy #[id number], 189, cm, 09/04/19 14:59:00 EST, Height, 55.6, kg, 09/04/19 14:59:00 EST, Dry Weight Start Date: 09/28/19 Status: Ordered Problem List Condition Effective Dates Status Health Status Inform ant Back pain(Confirmed) Active Child in welfare custody(Confirmed) Active Depression(Confirmed) Active Neck and shoulder pain(Confirmed) Active Viral URI with cough(Confirmed) Active Diagnosis Diagnosis Type Effective Dates Health Status Clinical Service Informant Toe pain, left Discharge Diagnosis 10/11/19 Neck and shoulder pain Discharge Diagnosis 10/11/19 Back pain Discharge Diagnosis 10/11/19 Annual physical exam Discharge Diagnosis 10/11/19 Depression Discharge Diagnosis 10/11/19 Vital Signs Most recent to oldest [Reference Range]: 1 Height 179.3 cm (10/11/19 7:53 AM) Weight 61 kg (10/11/19 7:53 AM) Oxygen Saturation [94-100 %] 98 % (10/11/19 7:53 AM) Pulse Rate [55-90 bpm] 67 bpm (10/11/19 7:53 AM) Body Mass Index [18.5-24.99] 18.97 (10/11/19 7:53 AM) Blood Pressure [80-130/50-80 mm Hg] 120/ 88mm Hg (10/11/19 7:53 AM) Mode of Delivery (Oxygen) Room air (10/11/19 7:53 AM) Blood pressure sites Arm, left (10/11/19 7:53 AM) Dry Weight 61 kg (10/11/19 7:53 AM) Weight Obtained Via Standing scale (10/11/19 7:53 AM) Social History Social History 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
--- OUTSIDE RECORDS SUMMARY | 2023-04-11 21:25 | XMS_ITS | Continuity of Care Document ---
Author Name Unknown Organization [facility] Address [address] [place] [address]- Care Team Providers Care Hospital Insurance Clerk Name Role Phone Sudeep Billings NP Primary Care Physician [phone] [place] [facility] [place]05[place]19 [place] 10/12/19 [facility] [address] [place] [address]- [place] Encounter Diagnosis Depression(Discharge Diagnosis) - 10/06/19 Encounter to establish care(Discharge Diagnosis) - 10/06/19 Attending Physician: Sudeep Billings NP Allergies, Adverse [...] 09/28/19 13:39:00 EST, Route to Pharmacy Electronically, [facility]/pharmacy #[id number], 189, cm, 09/04/19 14:59:00 EST, Height, 55.6, kg, 09/04/19 14:59:00 EST, Dry... Start Date: 09/28/19 Status: Ordered divalproex sodium 250 mg oral tablet, extended release 3 tablet = 750 mg, By Mouth, Daily at bedtime, # 90 tablet, 0 Refills, Maintenance, 09/28/19 13:39:00 EST, ER Tablet, [facility]/pharmacy #[id number], 189, cm, 09/04/19 14:59:00 [...] 0 Refills, Maintenance, 09/28/19 13:39:00 EST, Tablet, [facility]pharmacy #[id number], 189, cm, 09/04/19 14:59:00 EST, Height, 55.6, kg, 09/04/19 14:59:00 EST, Dry Weight Start Date: 09/28/19 Status: Ordered Problem List Condition Effective Dates Status Health Status Inform ant Back pain(Confirmed) Active Child in welfare custody(Confirmed) Active Depression(Confirmed) Active Neck and shoulder pain(Confirmed) Active Viral URI with cough(Confirmed) Active Diagnosis Diagnosis Type Effective Dates Health Status Clinical Service Informant Depression Discharge Diagnosis 10/06/19 Encounter to establish care Discharge Diagnosis 10/06/19 Vital Signs Most recent to oldest [Reference Range]: 1 Height 181.6 cm (10/05/19 9:14 AM) Weight 61.7 kg (10/05/19 9:14 AM) Pulse Rate [55-90 bpm] 66 bpm (10/05/19 9:14 AM) Body Mass Index [18.5-24.99] 18.71 (10/05/19 9:14 AM) Blood Pressure [80-130/50-80 mm Hg] 90/7 0mm Hg (10/05/19 9:14 AM) Respiratory Rate [16-30 br/min] 20 br/mi n (10/05/19 9:14 AM) Blood pressure sites Arm, right (10/05/19 9:14 AM) Dry Weight 61.7 kg (10/05/19 9:14 AM) Weight Obtained Via Standing scale (10/05/19 9:14 AM) Dry Weight Obtained Via Standing scale (10/05/19 9:14 AM) Social History Social History 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
--- NOTE | 2023-04-11 21:58 | PC.NURSE ---
pt changed into green gown, shirt given to security, belongings in the decon room, placed on gambling monitor, given pt phone, sitter at the bedside at this time
--- NOTE | 2023-04-11 22:09 | ED_ITS ---
HPI - Psych General Chief Complaint: Psychiatric Symptoms Stated Complaint: anxiety, depression Time Seen by Provider: 04/11/23 20:58 Source: patient Mode of arrival: EMS Limitations: no limitations History of Present Illness HPI Narrative: Patient comes to the emergency room via ambulance. Patient was discharged from [facility] crisis unit and then to [facility] [place]. Patient states he is hopeless, feels depressed. Patient took approximately 12 tablets of clonidine, states he took 3 tablets at a time to help with anxiety. Patient states that he did not use it with the intention of overdosing, he has had a panic attack. Patient denies SI or HI Related Data Previous Rx's Medication Instructions Recorded clonidine HCl 0.1 mg tablet 0.1 mg PO BID PRN anxiety 30 days 04/05/23 #60 tabs fluoxetine 20 mg capsule 20 mg PO DAILY depressive disorder 04/05/23 30 days #30 caps hydroxyzine HCl 50 mg tablet 50 mg PO TID PRN anxiety 30 days 04/05/23 #90 tabs melatonin 3 mg tablet 9 mg (3 x 3 mg) PO BEDTIME 04/05/23 insomnia 30 days #90 tabs olanzapine 5 mg tablet 5 mg PO BEDTIME 30 days #30 tabs 04/05/23 trazodone 50 mg tablet 50 mg PO BEDTIME 30 days #30 tabs 04/05/23 Allergies Allergy/AdvReac Type Severity Reaction Status Date / Time No Known Allergies Allergy Verified 04/11/23 21:14 Review of Systems Review of Systems: Constitutional : No Weight loss, No Fever, No Chills, No Night Sweats, No Fat igue, No Malaise ENT/Mouth : No Hearing loss, No Ear Pain, No Nasal Congestion, No Sinus Pain, No Hoarseness, No sore throat, No Rhinorrhea, No Swallowing Difficulty Eyes: No Eye Pain, No Swelling, No Redness, No Foreign Body, No Discharge, No Vision Changes Cardiovascular : No Chest Pain, No SOB, No Dyspnea on Exertion, No Orthopnea, No Edema, No Palpitations Respiratory : No Cough, No Sputum, No Wheezing, No Smoke Exposure, No Dyspnea Gastrointestinal : No Nausea, No Vomiting, No Diarrhea, No Constipation, No abdominal Pain, No Hematochezia, No Melena Genitourinary : no irregular bleeding, No Dysuria, No Urinary Frequency, No Hematuria, No Urinary Incontinence, No Urgency, No Flank Pain, No Urinary Flow Changes, No Hesitancy Musculoskeletal : No joint pain, No Myalgias, No Joint Swelling Skin : No Skin Lesions, No rash Neuro : No Weakness, No Numbness, No Paresthesias, No Loss of Consciousness, No Dizziness, No Headache Psych : Complaining of anxiety, depression, no SI, no HI, patient is homeless Heme/Lymph: No Bruising, No Bleeding,No Lymphadenopathy Endocrine : No Polyuria, No Polydipsia, No Temperature Intolerance [facility] Past Medical History Medical History Cocaine abuse MDD (major depressive disorder), recurrent episode, severe Depression Social History Social History Household Members: Friend(s) Housing: Apartment Do you presently have visiting nurse or other home services: No Patient Tobacco Use Status: Current everyday Tobacco user Tobacco use type: Cigarette e-Cigarette/Vaping Use: Never Used Second Hand Smoke Exposure: No Substance Use Type: Crack/Cocaine and Marijuana Advance Directives: No Advance Directives Information Provided: No service: No Sexual orientation: Straight/Heterosexual Physical Exam Vital Signs: Vital Signs: Last Vital Signs Temp 97.8 F 04/11/23 21:10 Pulse 58 04/11/23 21:10 Resp 16 04/11/23 21:10 BP 107/58 L 04/11/23 21:10 Pulse Ox 100 04/11/23 21:10 O2 Del Method Room Air 04/11/23 21:10 BMI result Body Mass Index 19.5 Const: Other: Appearance: Alert. Oriented X3. No acute distress. Eyes: Pupils equal, round and reactive to light. ENT: Pharynx normal. Neck: Normal inspection. Neck supple. No lymph nodes noted. No crepitus CVS: Normal heart rate and rhythm. Pulses normal. Normal S1 and S2 Respiratory: No respiratory distress. Breath sounds normal. No Wheezing. No rales Abdomen: Soft and nontender. No rigidity. No distention. Skin: Skin warm and dry. Normal skin color. Normal skin turgor. Extremities: No lower extremity edema. No Lacerations. No Rash Neuro: Oriented X 3. No motor deficit. No sensory deficit. Moving all extremities. No slurred speech. CN 2 through 12 grossly intact Psych: calm, cooperative, angry Course Course Course Narrative: -all of patient's labs pending -care team consult pending -patient is not suicidal or homicidal, Section 12 not indicated. -physician observation started at 22:10 Medical Decision Making Differential Diagnosis Differential Diagnoses: The differential diagnosis associated with the presentation includes (Anxiety, depression, polysubstance abuse, homelessness) Admission/Observation Consideration of admission/observation: Escalation of care including admission/observation considered (Patient will be under observation until seen by the care team) Discharge Plan Discharge Clinical Impression: Depression Patient Disposition: Still a Patient Prescriptions: No Action hydroxyzine HCl 50 mg Tablet 50 mg PO TID PRN (Reason: anxiety) 30 Days Qty: 90 0RF olanzapine 5 mg Tablet 5 mg PO BEDTIME 30 Days Qty: 30 0RF trazodone 50 mg Tablet 50 mg PO BEDTIME 30 Days Qty: 30 0RF melatonin 3 mg tablet 9 mg PO BEDTIME 30 Days Qty: 90 0RF fluoxetine 20 mg capsule 20 mg PO DAILY 30 Days Qty: 30 0RF clonidine HCl 0.1 mg tablet 0.1 mg PO BID PRN (Reason: anxiety) 30 Days Qty: 60 0RF
[2023-04-11 22:31] VITALS: PULSE 43; RESP 16; O2SAT 100
[2023-04-11 22:52] LABS: MANUAL DIFF FLAG NO
[2023-04-11 22:57] LABS: Basophils Absolute Auto 0.1 X10*3/uL (0.0-0.2); Basophils Percent Auto 1.2 % (0-2); Eosinophils Absolute Auto 0.5 X10*3/uL (0.0-0.4); Eosinophils Percent Auto 4.6 % (0-4); Hematocrit 40.5 % (42.0-52.0); Hemoglobin 13.6 g/dl (14.0-18.0); Imm Gran Abs Auto 0.02 X10*3/uL (0.00-0.03); Imm Gran Pct Auto 0.2 % (0.0-0.4); Lymphocytes Absolute Auto 2.9 X10*3/uL (1.2-4.9); Lymphocytes Percent Auto 28.9 % (20-40); Mean Corpuscular HGB Conc 33.6 g/dl (31.0-36.0); Mean Corpuscular Hemoglobin 31.9 pg (27.0-33.0); Mean Corpuscular Volume 94.8 fL (80.0-98.0); Mean Platelet Volume 10.1 fL (9.4-12.4); Monocytes Absolute Auto 1.1 X10*3/uL (0.1-1.2); Monocytes Percent Auto 10.7 % (2-11); Neutrophils Absolute Auto 5.5 x10*3/uL (2.0-8.3); Neutrophils Percent Auto 54.4 % (45-73); Platelet Count 256 X10*3/uL (160-400); Red Blood Count 4.27 X10*6/uL (4.60-5.80); Red Cell Distribution Width 13.1 % (11.0-16.0); White Blood Count 10.1 X10*3/uL (4.8-10.8)
[2023-04-11 23:24] LABS: Alanine Aminotransferase 12 U/L (0-40); Albumin Level 4.1 g/dL (3.5-5.0); Alkaline Phosphatase 58 U/L (39-117); Anion Gap 10 (12-20); Aspartate Amino Transferase 19 U/L (5-37); Bilirubin Direct 0.2 mg/dL (0.0-0.5); Bilirubin Total 0.5 mg/dL (0.0-1.0); Blood Urea Nitrogen 12 mg/dL (9-16); Calcium 9.5 mg/dL (8.4-10.2); Carbon Dioxide 25 mmol/L (22-29); Chloride 107 mmol/L (96-108); Creatinine Clr Calc Pharmacy 132.8; Estimated Glomerular Filt Rate > 60; Ethanol < 10 mg/dL; Glucose Random 113 mg/dL (60-115); Sodium 138 mmol/L (135-145)
[2023-04-12] VITALS (7 sets, daily range): BP systolic 94–106; BP diastolic 59–65; PULSE 55–70; RESP 16; TEMP 36.5–36.7; O2SAT 97–99
[2023-04-12 04:53] LABS: Amphetamine Screen Urine Not Detected (Not Detect); Barbiturates, Urine Not Detected (Not Detect); Benzodiazepines Screen Urine Not Detected (Not Detect); Cannabinoid Screen Urine POSITIVE (Not Detect); Cocaine Screen Urine Not Detected (Not Detect); Fentanyl, urine Not Detected (Not Detect); Opiate Screen Urine Not Detected (Not Detect); Phencyclidine Screen Urine Not Detected (Not Detect)
--- NOTE | 2023-04-12 07:21 | MHC.EDTECH ---
pt refused vitals at this time stated I wont be able to fall back asleep. Let's do this later please. There are no signs of distress. respirations are even and unlabored.
--- NOTE | 2023-04-12 07:51 | PC.NURSE ---
pt currently sleeping at this time in no apparent distress. respirations even and unlabored. 1:1 sitter present. sitter states that she attempted to take vitals on pt but he refused at this time. pt displays nsr on the monitoring and evaluation advisor. HR & O2 wnl. call mccollum placed within reach.
--- NOTE | 2023-04-12 09:03 | PC.NURSE ---
pt still currently sleeping at this time. vss. nsr on the personnel monitor. pt resting comfortably in no apparent distress. respirations even and unlabored. 1:1 sitter present. will reassess [place] severity scale when pt awakes. call mccollum placed within reach.
--- NOTE | 2023-04-12 09:29 | PC.NURSE ---
pt currently being seen by care team.
--- NOTE | 2023-04-12 11:25 | PC.NURSE ---
pt a&ox3, vss, nsr on the cardiac nurse specialist. pt currently speaking w/ care team rob. pt became verbally aggressive with crisis care member when she tried to speak with him. pt now ripping off all medical equipment and throwing it on the ground. 1:1 sitter present. pt verbalizing that he wants to tell crisis care team that he is suicidal so he is able to get admitted to a psych patrick so he is able to sleep.
--- NOTE | 2023-04-12 11:34 | PC.NURSE ---
pt requesting to speak w/ crisis care team - tigertexted/notified them.
--- NOTE | 2023-04-12 11:46 | PC.NURSE ---
pt currently speaking with crisis care steam crane operator. will speak with member about plan of care regarding pt.
--- NOTE | 2023-04-12 12:11 | PC.NURSE ---
pt spoke with crisis retail team leader and aware of plan. this rn retrieved some of pt's belongings from [employer] (laptop and filenet developer) so pt can attempt to contact someone for a ride/somewhere for him to stay. the rest of the pt's belongings are in the water closet in [employer] d/t belongings bag being too large where it cannot fit inside a locker.
--- NOTE | 2023-04-12 12:42 | PC.NURSE ---
pt moved to 6hall. pt currently being calm and cooperative rob. resting comfortably in no apparent distress while using his laptop.
--- NOTE | 2023-04-12 13:35 | MHC.CARE ---
Patient evaluated by the CARE Team, does not require an inpatient psychiatric admission. Decline referral/LYFT to shelters.
== END 2023-04-12 14:25 | disposition home or self-care (01) ==
PROVIDERS: Emergency Provider Emergency Medicine
DX: F33.1 Major depressive disorder, recurrent, moderate (principal); F41.1 Generalized anxiety disorder; F43.0 Acute stress reaction; R00.1 Bradycardia, unspecified; F17.210 Nicotine dependence, cigarettes, uncomplicated; Z71.6 Tobacco abuse counseling; Z79.899 Other long term (current) drug therapy
CPT/HCPCS: 36415; 80048; 80076; 80307; 85025; 93005; 99285; S9485

== ENCOUNTER 2023-05-08 20:43 | Emergency (ER) | payer OTHER, SELFPAY ==
[2023-05-08 21:08] VITALS: BP 100/60; BP 90/60; PULSE 88; PULSE 97; RESP 16; TEMP 36.9; O2SAT 97; O2SAT 98; BMI 19.8
--- NOTE | 2023-05-08 22:21 | ED.GENADULT ---
HPI - General Adult General Chief complaint: Psychiatric Symptoms Stated complaint: pt coming in with behavioral issues, per ems Time Seen by Provider: 05/08/23 21:56 Source: patient and EMS Mode of arrival: EMS Limitations: no limitations History of Present Illness HPI narrative: A 22-year-old male who is homeless patient felt anxious being in the street call the ambulance to come to the hospital, in the emergency department patient is not anxious and more calm, no depression, no SI, no HI, patient has no place to go tonight patient will be sleeping over in the emergency department until tomorrow morning. Related Data Previous Rx's Medication Instructions Recorded clonidine HCl 0.1 mg tablet 0.1 mg PO BID PRN anxiety 30 days 04/05/23 #60 tabs fluoxetine 20 mg capsule 20 mg PO DAILY depressive disorder 04/05/23 30 days #30 caps hydroxyzine HCl 50 mg tablet 50 mg PO TID PRN anxiety 30 days 04/05/23 #90 tabs melatonin 3 mg tablet 9 mg (3 x 3 mg) PO BEDTIME 04/05/23 insomnia 30 days #90 tabs olanzapine 5 mg tablet 5 mg PO BEDTIME 30 days #30 tabs 04/05/23 trazodone 50 mg tablet 50 mg PO BEDTIME 30 days #30 tabs 04/05/23 Allergies Allergy/AdvReac Type Severity Reaction Status Date / Time No Known Allergies Allergy Verified 04/11/23 21:14 Review of Systems Review of Systems: All other systems are reviewed and are negative Constitutional: Reports as per HPI and Reports no additional constitutional complaints Eyes: Reports as per HPI and Reports no additional eye complaints Reports system reviewed and no additional complaints, except as documented Cardiovascular: Reports as per HPI and Reports no additional cardiovascular complaints Respiratory: Reports as per HPI and Reports no additional respiratory complaints Gastrointestinal: Reports as per HPI and Reports no additional gastrointestinal complaints Genitourinary: Reports no additional female genitourinary complaints Musculoskeletal: Reports no additional musculoskeletal complaints Skin/Breast: Reports system reviewed and no additional complaints, except as docu Psychiatric: Reports no additional psychiatric complaints Endocrine: Reports no additional endocrine complaints Hematologic/Lymphatic: Reports no additional hematologic/lymphatic complaints Allergic/Immunologic: Reports no additional allergic/immunologic complaints Reports system reviewed and no additional complaints, except as documented and Reports Abnormal speech present PMFSH Past Medical History Medical History Suicidal ideation Cocaine abuse MDD (major depressive disorder), recurrent episode, severe Depression Suicide attempt Social History Social History Household Members: Friend(s) Housing: Apartment Do you presently have visiting nurse or other home services: No Patient Tobacco Use Status: Current everyday Tobacco user Tobacco use type: Cigarette Smoked in Last 30 Days: No e-Cigarette/Vaping Use: Never Used Second Hand Smoke Exposure: No Use of substances other than those prescribed or required for medical reasons: No Substance Use Type: Crack/Cocaine and Marijuana Advance Directives: No Advance Directives Information Provided: No service: No Sexual orientation: Straight/Heterosexual Physical Exam ED Vital Signs: Vital Signs - 24 hr 05/09/23 16:10 05/10/23 06:34 Temperature 97.5 F Pulse Rate 67 68 Respiratory Rate 20 16 Blood Pressure 86/50 L 92/53 L Pulse Oximetry 97 97 Oxygen Delivery Method Room Air Room Air BMI result Body Mass Index 19.8 Vital signs have been reviewed and appear to be correct. Blood pressure elevated. Heart rate normal. Respiratory rate normal. Temperature normal. Oxygen saturation normal. Appearance: Alert. Oriented X3. No acute distress. Head: Normal external exam. Normocephalic. Atraumatic. No Green signs noted. No raccoon eyes noted Eyes: PERRLA. EOMI. Conjunctiva and sclera normal. Eyelids normal. ENT: TM's Normal. Pharynx normal. Uvula midline. Moist mucous membranes. No trismus noted. No drooling noted. No muffled voice noted. Neck: Normal inspection. Neck supple. FROM. No adenopathy. Thyroid Normal. No meningeal signs. No neck mass noted. CVS: Normal heart rate and rhythm. Heart sound normal. No murmurs noted. Pulses normal throughout. Respiratory: No respiratory distress. Painless inspiration. Breath sounds normal. No wheezes/rales/rhonchi noted. Chest nontender. No accessory muscle usage noted or decreased air movement noted. Abdomen: Soft and nontender. Bowel sounds normal in all 4 quadrants. No distention noted. No organomegaly noted. No visible injury noted. Back: No CVA tenderness. Full range of motion noted. Skin: Skin warm and dry. Normal skin color. Normal skin turgor. No rashes/lesions/lacerations noted. Extremities: No lower extremity edema. Extremities exhibit normal range of motion. Extremities nontender. Neuro: Oriented X 3. Cranial nerve exam: II-XII are grossly intact No motor deficit. No sensory deficit. Reflexes normal. Patient Orientation: Person, Place, Time and Situation, okay hygiene and grooming. Fair eye contact, attentive, no tics or tremors. Level of Consciousness: Awake, Appropriate and Alert Patient Behavior: Appropriate, Guarded, Cooperative and Anxious Mood Description: Constricted, Blunted and Apprehensive Affect Description: Constricted, Blunted and Apprehensive Patient Cognition Impaired: No Ability to Follow Directions: Excellent Speech Pattern: Clear, Appropriate and Spontaneous Speech, nonpressured, spontaneous with regular rate and rhythm, normal volume and prosody. No dysarthria. Memory Description: Intact, Immediate Intact and Short Term Intact Hallucinations: None Delusions: Not Present Thought Process: Intact Thought Content: positive for Intact, positive for Logical, denies Suicidal Ideation and denies Homicidal Ideation. Depressive Symptoms: Not present. Judgement and Insight: Limited but adequate. Course Course Course Narrative: Homeless came in after having panic attack from being in the street, patient now is calm with no anxiety or panic attack. no SI, no HI. Reevaluation(s) Reevaluation #1: Patient still declined SI or HI but he is requesting to talk to care team does not feel safe to be discharged in the street, will keep the patient as physician observation and request care team consultation. Time: 06:42 Reevaluation #2: Patient agitated, states he fell, didnt hit his head in the hallway fall witnessed by reggie Pleitez no head strike. No indication for head CT.. Neuro nonfocal. Cerebellar intact. Patient swearing and coming to cord staff members and security, tried to verbally deescalate however patient not responding well to this. At this time patient agreeable to take meds to help him calmed down. Nursing states they will put in an incident report. Patinet states he fell becuase he got up to fast. Russian head ct negative Time: 16:58 Reevaluation #3: Patient will be refereed to RESPIT with plan to DC. No si or hi. Time: 11:34 Medications Administered Generic Name Dose Route Start Last Admin Trade Name Freq PRN Reason Stop Dose Admin Clonidine HCl 0.1 mg 05/09/23 19:54 05/09/23 20:21 Clonidine Hcl 0.1 Mg Tablet PO 0.1 mg BID PRN Administration anxiety Protocol Hydroxyzine HCl 50 mg 05/09/23 19:54 05/09/23 20:22 Hydroxyzine Hcl 50 Mg Tablet PO 50 mg TID PRN Administration anxiety Melatonin 9 mg 05/09/23 21:00 05/09/23 20:21 Melatonin 3 Mg Tablet PO 9 mg BEDTIME GIANFRANCO Administration Trazodone HCl 50 mg 05/09/23 21:00 05/09/23 20:21 Trazodone Hcl 50 Mg Tablet PO 50 mg BEDTIME GIANFRANCO Administration Discontinued Medications Generic Name Dose Route Start Last Admin Trade Name Freq PRN Reason Stop Dose Admin Diphenhydramine HCl 50 mg 05/09/23 16:56 05/09/23 17:01 Diphenhydramine Hcl 25 Mg Capsule PO 05/09/23 16:57 50 mg ONCE ONE Administration Haloperidol 5 mg 05/09/23 16:56 05/09/23 17:02 Haloperidol 5 Mg Tablet PO 05/09/23 16:57 5 mg ONCE ONE Administration Lorazepam 2 mg 05/09/23 16:56 05/09/23 17:01 Lorazepam 1 Mg Tablet PO 05/09/23 16:57 2 mg ONCE ONE Administration Medical Decision Making Differential Diagnosis Differential Diagnoses: The differential diagnosis associated with the presentation includes (Homeless, depression, SI, HI.) Admission/Observation Consideration of admission/observation: Escalation of care including admission/observation considered Lab Data 05/09/23 06:49 05/09/23 06:50 Labs: Lab Results 05/09/23 05/09/23 05/09/23 Range/Units 06:49 06:50 13:58 WBC 5.5 (4.8-10.8) X10*3/uL RBC 4.40 L (4.60-5.80) X10*6/uL Hgb 14.1 (14.0-18.0) g/dl Hct 41.2 L (42.0-52.0) % MCV 93.6 (80.0-98.0) fL MCH 32.0 (27.0-33.0) pg MCHC 34.2 (31.0-36.0) g/dl RDW 12.7 (11.0-16.0) % Plt Count 254 (160-400) X10*3/uL MPV 9.8 (9.4-12.4) fL Immature Gran % (Auto) 0.2 (0.0-0.4) % Neut % (Auto) 44.7 L (45-73) % Lymph % (Auto) 36.7 (20-40) % Mason % (Auto) 12.1 H (2-11) % Eos % (Auto) 5.0 H (0-4) % Baso % (Auto) 1.3 (0-2) % Lymph # (Auto) 2.0 (1.2-4.9) X10*3/uL Mason # (Auto) 0.7 (0.1-1.2) X10*3/uL Eos # (Auto) 0.3 (0.0-0.4) X10*3/uL Baso # (Auto) 0.1 (0.0-0.2) X10*3/uL Abs Immat Gran (auto) 0.01 (0.00-0.03) X10*3/uL Absolute Neuts (auto) 2.4 (2.0-8.3) x10*3/uL Absolute Nucleated RBC 0.000 (0.0-0.012) X10*3/uL Nucleated RBC % (auto) 0.0 (0.0-0.2) /100WBC Sodium 138 (135-145) mmol/L Potassium 4.1 (3.3-5.1) mmol/L Chloride 104 (96-108) mmol/L Carbon Dioxide 25 (22-29) mmol/L Anion Gap 13 (12-20) BUN 13 (9-16) mg/dL Creatinine 0.83 (0.5-1.4) mg/dL Estim Creat Clear Calc 117.4 Estimated GFR > 60 Random Glucose 110 (60-115) mg/dL Calcium 9.8 (8.4-10.2) mg/dL Total Bilirubin 1.1 H (0.0-1.0) mg/dL AST 19 (5-37) U/L ALT 16 (0-40) U/L Alkaline Phosphatase 62 (39-117) U/L Total Protein 7.4 (6.5-8.0) g/dL Albumin 4.2 (3.5-5.0) g/dL Urine Color Dark Yellow Urine Appearance Clear Urine pH 5.5 (5.0-9.0) Ur Specific [place] >= 1.030 H (1.005-1.025) Urine Protein Negative (Neg-Trace) mg/dL Urine Glucose (UA) Negative (Negative) mg/dL Urine Ketones Negative (Negative) mg/dL Urine Blood Negative (Negative) Urine Nitrite Negative (Negative) Ur Leukocyte Esterase Negative (Negative) Urine Opiates Screen Not Detected (Not Detect) Urine Fentanyl Screen Not Detected (Not Detect) Ur Barbiturates Screen Not Detected (Not Detect) Ur Phencyclidine Scrn Not Detected (Not Detect) Ur Amphetamines Screen Not Detected (Not Detect) U Benzodiazepines Scrn Not Detected (Not Detect) Urine Cocaine Screen Not Detected (Not Detect) U Marijuana (THC) Screen POSITIVE H (Not Detect) Ethyl Alcohol < 10 mg/dL Discharge Plan Discharge Clinical Impression: Acute anxiety, Homeless Patient Disposition: Home, Self-Care Instructions: Anxiety (ED) Additional Instructions: Take your medications as prescribed. If you were prescribed antibiotics today, it is important that you take your medication to their entirety, do not skip any doses, do not finish them early. Follow-up with your primary care provider this week. Return to the emergency department with new or worsening symptoms. 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
--- NOTE | 2023-05-08 23:04 | PC.NURSE ---
Pt verbalizes no SI and no HI, just generally feels unsafe due to being homeless. this RN feels no need to change patient over and secure belongings because patient is no harm to self or others.
[2023-05-08 23:05] VITALS: PULSE 86; RESP 16; O2SAT 97
--- NOTE | 2023-05-08 23:43 | PC.NURSE ---
pt changed over due to him staying the whole night in the ED, provided with water and blanket
--- NOTE | 2023-05-09 00:56 | PC.NURSE ---
pt continues to rest comfortably, respirations even and unlabored, skin pwd
[2023-05-09 05:14] VITALS: PULSE 85; RESP 16; O2SAT 97
[2023-05-09 07:10] LABS: Alanine Aminotransferase 16 U/L (0-40); Albumin Level 4.2 g/dL (3.5-5.0); Alkaline Phosphatase 62 U/L (39-117); Anion Gap 13 (12-20); Aspartate Amino Transferase 19 U/L (5-37); Bilirubin Total 1.1 mg/dL (0.0-1.0); Blood Urea Nitrogen 13 mg/dL (9-16); Calcium 9.8 mg/dL (8.4-10.2); Carbon Dioxide 25 mmol/L (22-29); Chloride 104 mmol/L (96-108); Creatinine Clr Calc Pharmacy 117.4; Estimated Glomerular Filt Rate > 60; Ethanol < 10 mg/dL; Glucose Random 110 mg/dL (60-115); Potassium 4.1 mmol/L (3.3-5.1); Sodium 138 mmol/L (135-145); Total Protein 7.4 g/dL (6.5-8.0)
--- NOTE | 2023-05-09 08:33 | PC.NURSE ---
pt sleeping, wakes to verbal stimulus, vss, pt aware we need urine before care team will see him, vitals have been stable, denies si/hi, will continue to monitor
[2023-05-09 09:14] VITALS: BP 92/51; PULSE 57; RESP 18; O2SAT 97
--- NOTE | 2023-05-09 13:09 | PC.NURSE ---
pt continues to sleep, wakes to verbal stimulus, spoke with care team earlier, pt has no c/o pain/discomfort, denies si/hi, will continue to monitor.
--- NOTE | 2023-05-09 13:30 | MHC.CARE ---
CARE Team referred to [facility] in [place]. Fax of patient referral has been confirmed received and is under review by [facility] Director for acceptance.
--- NOTE | 2023-05-09 15:56 | MHC.CARE ---
CARE Team called [facility] for respite update; currently there is no update on acceptance. [facility] request follow up after 10PM this evening or tomorrow. Patient trespassed [facility], is not allowed back and was kicked out of [facility] respite yesterday.
[2023-05-09 16:10] VITALS: BP 86/50; PULSE 67; RESP 20; O2SAT 97
--- NOTE | 2023-05-09 16:19 | PC.NURSE ---
this RN was alerted by staff that patient fell on floor. patient was laying on floor with eyes open and no response. patient came to after 10 seconds and started yelling he had to pee and obscenities at staff. refused vital signs and went into bathroom. patient primary nurse notified. per witness patient did not hit his head and did not loc
--- NOTE | 2023-05-09 18:36 | PC.NURSE ---
earlier in the shift while this nurse was dealing with another critical patient, this patient got oob and ambulated to the bathroom, pt was in the bathroom for over 45 minutes as noted by other staff, upon knocking on the door the patient became belligerent and yelling at staff, security was called, patient arguing with security and stated that he just needed to use the bathroom, security stood by the bathroom for a period of time then escorted the patient back to his bed in the [facility], the patient was belligerent yelling at staff and was mad that he still has no respite place to go to, provider spoke with patient who willingly took po medications as pt was feeling anxious. pt was medicated by this nurses team-member. pt currently is sleeping, rr 18, will continue to monitor.
--- NOTE | 2023-05-09 20:48 | MHC.CARE ---
Tw spoke with Poonam Fortune [facility] Sarah who stated pt is unable to return to [facility] Respite at this time due to hx of aggression and trespassing
--- NOTE | 2023-05-09 22:01 | PC.NURSE ---
pt assessed, reported he was ready for his nightime medications, med rec done, medications given resting comfortably
[2023-05-10 06:34] VITALS: BP 92/53; PULSE 68; RESP 16; TEMP 36.4; O2SAT 97
--- NOTE | 2023-05-10 10:16 | MHC.CARE ---
Patient's information was sent to [facility], located [facility] for possible admission.
== END 2023-05-10 13:35 | disposition home or self-care (01) ==
PROVIDERS: Emergency Provider Emergency Medicine
DX: F41.1 Generalized anxiety disorder (principal); F43.0 Acute stress reaction; Z59.00 Homelessness unspecified; F17.210 Nicotine dependence, cigarettes, uncomplicated; Z71.6 Tobacco abuse counseling; Z79.899 Other long term (current) drug therapy
CPT/HCPCS: 36415; 80053; 80307; 81003; 85025; 96372; 99284; S9485

== ENCOUNTER 2023-07-08 12:34 | Emergency (ER) | payer OTHER, SELFPAY ==
[2023-07-08 12:42] VITALS: BP 122/72; PULSE 110; O2SAT 98; BMI 21.3
--- NOTE | 2023-07-08 12:49 | PC.NURSE ---
Patient admitted from senior care on [facility] [place]. Patient reports staff told him he needed to turn his phone in at 10pm and he became agitated. Per patient/ems patient can not return to senior care because he has been discharge d/t non-complaince with house rules. Upon arrival patient calm and cooperative until asked to climate change analyst and for belongings to be locked up. Patient yelling, spitting, and making threats towards staff about what would happen if anyone tried to change his clothes or lock up his phone. Security spoke with patient who went into bathroom to climate change analyst, belongings inventoried and locked in locker
--- NOTE | 2023-07-08 12:53 | ED_ITS ---
HPI - General Adult General Chief complaint: Psychiatric Symptoms Stated complaint: SI STATEMENT MADE IN CARE HOME Time Seen by Provider: 07/08/23 12:53 Source: patient and police Mode of arrival: ambulatory Limitations: no limitations History of Present Illness HPI narrative: Patient is a 22 year old assigned male at with a history of MDD presenting to the emergency department today with increased anxiety Patient states that he got into an argument with [facility] staff over his cell phone use and the [facility] told him he had to leave and contacted police to do so. Patient states that once he was in the police cruiser, he was asking if he could come to the hospital for an anxiety attack. The officer didn't respond quickly and the patient stated do I have to try and kill myself for you to take me to the hospital? . Patient denies any dizziness, lightheadedness, abdominal pain, nausea, vomiting, fever, chills, blurry vision, double vision, loss of vision, chest pain, difficulty breathing, shortness of breath, back pain, night sweats, pain with urination, increased urinary frequency, increased urinary urgency, blood in his urine or stool, syncope or a near syncopal episode, recent trauma or falls, bowel incontinence, bladder incontinence, bowel retention, bladder retention, or any other complaints at this time. Relieving factors: none Exacerbating factors: none Associated symptoms: denies other symptoms Treatments prior to arrival: none Related Data Home Medications Medication Instructions Recorded Confirmed acamprosate 333 mg tablet,delayed 666 mg PO TID 07/08/23 07/08/23 release aripiprazole 10 mg tablet 10 mg PO DAILY 07/08/23 07/08/23 chlorpromazine 50 mg tablet 50 mg PO DAILY PRN Anxiety 07/08/23 07/08/23 diphenhydramine HCl 50 mg capsule 50 mg PO BEDTIME 07/08/23 07/08/23 divalproex 500 mg tablet,extended 500 mg PO BEDTIME 07/08/23 07/08/23 release 24 hr ibuprofen 600 mg tablet 600 mg PO BID PRN Pain 07/08/23 07/08/23 nicotine (polacrilex) 4 mg gum 4 mg PO Q4-5H PRN Nicotine Cravings 07/08/23 07/09/23 (Nicorette) nicotine 21 mg/24 hr daily 1 patch topical DAILY 07/08/23 07/08/23 transdermal patch oxcarbazepine 300 mg tablet 300 mg PO BID 07/08/23 07/08/23 prazosin 1 mg capsule 1 mg PO BEDTIME 07/08/23 07/08/23 Previous Rx's Medication Instructions Recorded hydroxyzine HCl 50 mg tablet 50 mg PO TID PRN anxiety 30 days 04/05/23 #90 tabs trazodone 50 mg tablet 50 mg PO BEDTIME 30 days #30 tabs 04/05/23 Allergies Allergy/AdvReac Type Severity Reaction Status Date / Time No Known Allergies Allergy Verified 04/11/23 21:14 Review of Systems 2 Constitutional: Constitutional: Reports no additional constitutional complaints, Denies chills, Denies fever(s) and Denies night sweats Eyes: Eyes: Reports no additional eye complaints, Denies blurry vision, Denies change in vision, Denies diplopia, Denies eye discharge, Denies loss of vision and Denies eye pain ENT: Denies dizziness Cardiovascular: Cardiovascular: Reports no additional cardiovascular complaints, Denies chest pain, Denies lightheadedness, Denies Loss of Consciousness and Denies dyspnea Respiratory: Respiratory: Reports no additional respiratory complaints and Denies dyspnea Gastrointestinal: Gastrointestinal: Reports no additional gastrointestinal complaints, Denies abdominal pain, Denies melena, Denies hematochezia, Denies change in bowel habits and Denies change in stool character Genitourinary: Genitourinary: Reports no additional male genitourinary complaints, Denies hematuria, Denies oliguria, Denies difficulty urinating, Denies dysuria, Denies urinary frequency, Denies urinary hesitancy, Denies urinary incontinence and Denies urinary urgency Musculoskeletal: Musculoskeletal: Reports no additional musculoskeletal complaints, Denies numbness and Denies tingling Neurologic: Denies dizziness, Denies loss of vision, Denies numbness and Denies tingling Psychiatric: Comments: made a suicidal thought Endocrine: Endocrine: Reports no additional endocrine complaints Hematologic/Lymphatic: Hematologic/Lymphatic: Reports no additional hematologic/lymphatic complaints Allergic/Immunologic: Allergic/Immunologic: Reports no additional allergic/immunologic complaints PMFSH Past Medical History Attestation statement: The following information was validated with the patient. Source: old records reviewed and nursing notes reviewed Medical History Suicidal ideation Cocaine abuse MDD (major depressive disorder), recurrent episode, severe Depression Suicide attempt Social History Social History Household Members: Friend(s) Housing: Apartment Do you presently have visiting nurse or other home services: No Alcohol intake: former Patient Tobacco Use Status: Current everyday Tobacco user Tobacco use type: Cigarette Smoked in Last 30 Days: Yes e-Cigarette/Vaping Use: Never Used Second Hand Smoke Exposure: No Use of substances other than those prescribed or required for medical reasons: No Substance Use Type: Crack/Cocaine and Marijuana Advance Directives: No Healthcare Proxy: No Guardian: No service: No Sexual orientation: Straight/Heterosexual Physical Exam ED Vital Signs: Vital Signs - 24 hr 07/08/23 12:59 07/08/23 20:15 07/09/23 10:13 Temperature 98.8 F 98.5 F 98.1 F Pulse Rate 102 H 94 102 H Respiratory Rate 20 18 18 Blood Pressure 127/88 118/81 114/70 Pulse Oximetry 97 97 97 Oxygen Delivery Method Room Air Room Air Room Air BMI result Body Mass Index 21.3 Const General: cooperative, no acute distress, alert and awake Nutritional Appearance: well nourished Orientation/consciousness: patient oriented x3 Limitations: no limitations HENMT Head: Yes normal to inspection and Yes atraumatic Ears: hearing grossly normal bilaterally and external ears normal General nose exam: Normal external nose present, no nasal discharge noted and no epistaxis Face and sinus: Yes normal facial exam, No abrasion and No laceration Mouth: Normal oral and palatal mucosa present, no drooling and no muffled voice Eyes General: appearance normal, both eyes and all related structures Periorbital: periorbital findings normal Eyelids: Yes eyelids normal Conjunctivae: conjunctivae normal Pupils: Equal, round and reactive pupils present EOM: EOMs intact bilaterally Neck Neck: Yes normal visual inspection, Yes full ROM and Yes no lymphadenopathy Chest Chest palpation & inspection: normal inspection of the chest Resp Effort & Inspection: normal respiratory effort and able to speak in complete sentences GI Inspection: Yes normal to inspection Neuro General: patient oriented x3 and moves all extremities Cranial nerves: Yes Equal, round and reactive pupils present Cognition (Neuro): normal cognition Motor exam (neuro): 5/5 motor strength present throughout Sensory Exam: Normal double simultaneous stimulation for sensation Coordination: [id number] test normal Extrem General: Yes normal to inspection, Yes full ROM and Yes capillary refill normal Psych Appearance: grossly normal Mental Status: mental status grossly normal Affect: normal affect Attitude: cooperative Medications Administered Generic Name Dose Route Start Last Admin Trade Name Inessa PRN Reason Stop Dose Admin Acamprosate 666 mg 07/08/23 21:00 07/09/23 09:19 Acamprosate Calcium 333 Mg Tablet.Dr PO 666 mg TID GIANFRANCO Administration Aripiprazole 10 mg 07/09/23 09:00 07/09/23 09:19 Aripiprazole 10 Mg Tablet PO 10 mg DAILY GIANFRANCO Administration Diphenhydramine HCl 50 mg 07/08/23 21:00 07/08/23 20:05 Diphenhydramine Hcl 25 Mg Capsule PO 50 mg BEDTIME GIANFRANCO Administration Divalproex Sodium 500 mg 07/08/23 21:00 07/08/23 20:06 Divalproex Sodium Er 500 Mg Tab.Er.24h PO 500 mg BEDTIME GIANFRANCO Administration Nicotine 21 mg 07/08/23 16:00 07/09/23 09:22 Nicotine 21 Mg Patch.Td24 TRANSDERMA Not Given DAILY GIANFRANCO Oxcarbazepine 300 mg 07/08/23 21:00 07/09/23 09:19 Oxcarbazepine 300 Mg Tablet PO 300 mg BID GIANFRANCO Administration Prazosin HCl 1 mg 07/08/23 21:00 07/08/23 20:06 Prazosin Hcl 1 Mg Capsule PO 1 mg BEDTIME GIANFRANCO Administration Protocol Trazodone HCl 50 mg 07/08/23 21:00 07/08/23 20:06 Trazodone Hcl 50 Mg Tablet PO 50 mg BEDTIME GIANFRANCO Administration Discontinued Medications Generic Name Dose Route Start Last Admin Trade Name Inessa PRN Reason Stop Dose Admin Nicotine Polacrilex 2 mg 07/08/23 18:28 07/08/23 18:30 Nicotine Polacrilex 2 Mg Gum BUCCAL 07/08/23 18:29 2 mg ONCE ONE Administration Medical Decision Making Medical Decision Making [facility] Narrative: Patient is a 22 year old assigned male at with a history of MDD presenting to the emergency department today with suicidal ideation and anxiety. Patient's physical exam was unremarkable. Patient's blood work was unremarkable. Patient's urine showed no acute process. I explained my physical exam findings as well as all test results to the patient. I answered all questions asked by the patient. Patient evaluated by CARE team who recommended repeating the evaluation in the morning. Patient is seen by care team in the morning. Currently not suicidal extremely agitated does not want to go to respite bed. Patient is being discharged patient to follow-up on an outpatient basis Differential Diagnosis Differential Diagnoses: The differential diagnosis associated with the presentation includes Suicidal ideation Crisis Admission/Observation Consideration of admission/observation: Escalation of care including admission/observation considered Patient's admission decision will be made after CARE team re-evaluates in the morning. Consult Healthcare Provider Management of the patient was discussed with: Disability Insurance Hearing Officer (spoke to CARE team as noted in the MDM Rationale portion of this note.) Lab Data [facility] Lab Attestation statement: I reviewed the patient's lab results. My interpretation of these studies and their corresponding values is that they are grossly normal. 07/08/23 14:12 07/08/23 14:12 Labs: Lab Results 07/08/23 07/08/23 Range/Units 13:04 14:12 WBC 8.1 (4.8-10.8) X10*3/uL RBC 4.64 (4.60-5.80) X10*6/uL Hgb 14.5 (14.0-18.0) g/dl Hct 43.0 (42.0-52.0) % MCV 92.7 (80.0-98.0) fL MCH 31.3 (27.0-33.0) pg MCHC 33.7 (31.0-36.0) g/dl RDW 12.8 (11.0-16.0) % Plt Count 229 (160-400) X10*3/uL MPV 10.1 (9.4-12.4) fL Immature Gran % (Auto) 0.4 (0.0-0.4) % Neut % (Auto) 70.6 (45-73) % Lymph % (Auto) 17.4 L (20-40) % Wilkinson % (Auto) 8.4 (2-11) % Eos % (Auto) 2.3 (0-4) % Baso % (Auto) 0.9 (0-2) % Lymph # (Auto) 1.4 (1.2-4.9) X10*3/uL Wilkinson # (Auto) 0.7 (0.1-1.2) X10*3/uL Eos # (Auto) 0.2 (0.0-0.4) X10*3/uL Baso # (Auto) 0.1 (0.0-0.2) X10*3/uL Abs Immat Gran (auto) 0.03 (0.00-0.03) X10*3/uL Absolute Neuts (auto) 5.7 (2.0-8.3) x10*3/uL Absolute Nucleated RBC 0.000 (0.0-0.012) X10*3/uL Nucleated RBC % (auto) 0.0 (0.0-0.2) /100WBC Sodium 139 (135-145) mmol/L Potassium 4.1 (3.3-5.1) mmol/L Chloride 104 (96-108) mmol/L Carbon Dioxide 27 (22-29) mmol/L Anion Gap 12 (12-20) BUN 12 (9-16) mg/dL Creatinine 0.84 (0.5-1.4) mg/dL Estim Creat Clear Calc 124.9 Estimated GFR > 60 Random Glucose 95 (60-115) mg/dL Calcium 9.7 (8.4-10.2) mg/dL Total Bilirubin 0.3 (0.0-1.0) mg/dL AST 15 (5-37) U/L ALT 16 (0-40) U/L Alkaline Phosphatase 65 (39-117) U/L Total Protein 7.8 (6.5-8.0) g/dL Albumin 4.5 (3.5-5.0) g/dL Urine Color Yellow Urine Appearance Clear Urine pH 8.0 (5.0-9.0) Ur Specific Ferdinand 1.020 (1.005-1.025) Urine Protein Negative (Neg-Trace) mg/dL Urine Glucose (UA) Negative (Negative) mg/dL Urine Ketones Negative (Negative) mg/dL Urine Blood Negative (Negative) Urine Nitrite Negative (Negative) Ur Leukocyte Esterase Negative (Negative) Salicylates < 5.0 L (15-30) mg/dL Urine Opiates Screen Not Detected (Not Detect) Urine Fentanyl Screen Not Detected (Not Detect) Acetaminophen < 3 (<30) mcg/mL Ur Barbiturates Screen Not Detected (Not Detect) Ur Phencyclidine Scrn Not Detected (Not Detect) Ur Amphetamines Screen Not Detected (Not Detect) U Benzodiazepines Scrn Not Detected (Not Detect) Urine Cocaine Screen Not Detected (Not Detect) U Marijuana (THC) Screen Not Detected (Not Detect) Ethyl Alcohol < 10 mg/dL Independent Historian Clinical information obtained from an independent historian. History obtained from or confirmed by: Other (police provided additional history and confirmed the history provided by the patient.) Discharge Plan Discharge Clinical Impression: MDD (major depressive disorder), recurrent episode, severe Patient Disposition: Home, Self-Care Instructions: Depression (DC) Prescriptions: No Action hydroxyzine HCl 50 mg Tablet 50 mg PO TID PRN (Reason: anxiety) 30 Days Qty: 90 0RF trazodone 50 mg Tablet 50 mg PO BEDTIME 30 Days Qty: 30 0RF prazosin 1 mg capsule 1 mg PO BEDTIME oxcarbazepine 300 mg tablet 300 mg PO BID nicotine (polacrilex) [Nicorette] 4 mg gum 4 mg PO Q4-5H PRN (Reason: Nicotine Cravings) divalproex 500 mg tablet extended release 24 hr 500 mg PO BEDTIME nicotine 21 mg/24 hr patch 24 hour 1 patch topical DAILY ibuprofen 600 mg tablet 600 mg PO BID PRN (Reason: Pain) aripiprazole 10 mg tablet 10 mg PO DAILY acamprosate 333 mg tablet,delayed release (DR/EC) 666 mg PO TID diphenhydramine HCl [Benadryl] 50 mg Capsule 50 mg PO BEDTIME chlorpromazine 50 mg Tablet 50 mg PO DAILY PRN (Reason: Anxiety) Referrals: Physician,Unknown J [Primary Care Provider] - (Follow-up as per care team) Interventions: [place]-Suicide Risk Severity Scale Last Done: 07/09/23 02:44
[2023-07-08 12:59] VITALS: BP 127/88; PULSE 102; RESP 20; TEMP 37.1; O2SAT 97
[2023-07-08 13:25] LABS: Appearance Urine Clear; Color Urine Yellow; Glucose Urine UA Negative (Negative); Leukocyte Esterase Urine Negative (Negative); Nitrite Urine Negative (Negative); Urine Blood Negative (Negative); Urine Ketones Negative (Negative); Urine Protein Negative (Neg-Trace)
[2023-07-08 13:28] LABS: Amphetamine Screen Urine Not Detected (Not Detect); Barbiturates, Urine Not Detected (Not Detect); Benzodiazepines Screen Urine Not Detected (Not Detect); Cannabinoid Screen Urine Not Detected (Not Detect); Cocaine Screen Urine Not Detected (Not Detect); Fentanyl, urine Not Detected (Not Detect); Opiate Screen Urine Not Detected (Not Detect); Phencyclidine Screen Urine Not Detected (Not Detect)
--- OUTSIDE RECORDS SUMMARY | 2023-07-08 13:28 | XMS_ITS | Continuity of Care Document ---
Author Name Unknown Organization [facility] Address [address] [place] [address]- Care Team Providers Care Machining Associate Name Role Phone Clint CARTER, Megan Bunch Primary Care Physician [facility]counter [facility] Date(s): 05/10/23 - 05/11/[address] [address]- Encounter Diagnosis Depression(Final) - 05/10/23 Anxiety(Final) - 05/10/23 Passive suicidal ideations(Final) - 05/10/23 Discharge Disposition: A-D/C Home Attending Physician: Palmer Mosher MD Admitting Physician: Palmer Mosher MD Referring Physician: Not on Staff, Referring [...] 02/20/23 15:31:00 EDT, Route to Pharmacy Electronically, [facility]/pharmacy #[id number], Partial fill upon patient request if the prescription is for a schedule II opioid dr... Start Date: 02/20/23 Status: Ordered hydrOXYzine hydrochloride 25 mg oral tablet 1 tablet = 25 mg, By Mouth, Daily, # 30 tablet, 0 Refills, Maintenance, 02/20/23 15:30:00 EDT, Tablet, [facility]/pharmacy #[id number], Partial fill upon patient request if [...] 12/05/21 2:42:00 EDT, Route to Pharmacy Electronically, [facility]/pharmacy #[id number], Partial fill upon patient request, 56.9, kg, [...] 2:42:00 EDT, Route to Pharmacy Electronically, [id number], Partial fill upon patient request if the [...] 1 2 3 Oxygen Saturation [94-100 %] 99 % (05/11/23 6:39 AM) 99 % (05/11/23 4:17 AM) 99 % (05/10/23 9:20 PM) Pulse Rate [55-90 bpm] 76 bpm (05/11/23 6:39 AM) 80 bpm (05/11/23 4:17 AM) 82 bpm (05/10/23 9:20 PM) Blood Pressure [90-138/55-84 mm Hg] 122/71mm Hg (05/11/23 6:39 AM) 118/74mm Hg (05/11/23 4:17 AM) 112/69mm Hg (05/10/23 9:20 PM) Respiratory Rate [16-30 br/min] 18 br/min (05/11/23 6:39 AM) 18 br/min (05/11/23 4:17 AM) 18 br/min (05/10/23 9:20 PM) Temperature [96.8-100.4 DegF] 98.7 DegF (05/10/23 9:20 PM) Mode of Delivery (Oxygen) Room air (05/10/23 9:20 PM) Temperature Route Oral (05/10/23 9:20 PM) Social History Social History Type Response Smoking Status Current every day sm oker; Tobacco user in household: Yes entered on: 08/22/15 Sex Note * Nomi CARTER, Palmer: PERFORM Event Display: Patient Education Leaflets Authored Date: Depression ?? [id number] Depression Depression is a very common mental health problem. It's not just a state of being unhappy or sad. It's a true disease. The cause seems to be linked to a change in chemicals that send signals in the brain. These things increase a person???s risk of depression: ??? A family history of depression, alcoholism, or suicide ??? Chronic illness ??? Chronic pain ???Migraine headaches ??? High emotional stress Depression may be easier to see in others. You may have a hard time seeing it in yourself. It can show in many physical and emotional ways. These include: ??? Loss of appetite ??? Overeating ??? Not being able to sleep ??? Sleeping too much ??? A lot of tiredness not linked to physical activity ??? Restlessness or irritability ??? Slowness of movement or speech ??? Feeling sad or withdrawn ??? Loss of interest in things you once enjoyed ??? Trouble??concentrating, remembering,??or making decisions ??? Thoughts of harming or killing yourself, or thoughts that life is not worth living ??? Low self-esteem The treatment for depression may include both medicine and psychotherapy. Antidepressants can ease symptoms. They can also make it easier for you to do daily tasks. Therapy can offer emotional support. It can also help you understand things that may be causing the depression. Home care ??? Ongoing care and support help people manage this disease. Find a healthcare provider and therapist who meet your needs. Get help when you feel like you may be getting ill. ??? Be kind to yourself. Make it a point to do things that you enjoy. This may be gardening, walking in nature, or going to a movie. Reward yourself for small successes. ??? Take care of your body. Eat a balanced diet. Eat foods low in saturated fat. Eat a lot of fruits and vegetables. Exercise at least 3 times a week for 30 minutes. Even mild to moderate exercise like brisk walking can make you feel better. ??? Take medicine as prescribed. Don't stop your medicine or change the dose unless you talk with your healthcare provider. ??? Once you start medicine, expect your symptoms to get better slowly. Depression will lift over time. It doesn't get better right away. Ask your healthcare provider how long it will take for a medicine to start working. ??? Don't share your medicine. Don???t use someone else's medicine. ??? Tell your healthcare providers all the medicines you take. This includes prescription and qayo-eac-[id number] medicines. It includes vitamins and herbal supplements. Some supplements caninteract with medicines. They can cause dangerous side effects. Ask your pharmacist about medicine interactions when you have questions. ??? Don't make major decisions until you feel better. This incl udes things such as a job change, a divorce, or a marriage. ??? Don't drink alcohol. It can make depression worse. ??? Talk with your family and??trusted friends??about your feelings and thoughts.??Ask them to help you notice behavior changes early. You can then get help and, if needed, your medicine can be changed. ??? Talk with your healthcare provider if you are not getting better. They may change your medicine or have you try another treatment. ?? Follow-up care Follow up with your healthcare provider as advised. ?? Crisis care Call 988 if you have thoughts of harming yourself or others. When you call or text [phone], you will beconnected to trained crisis counselors. An online chat option is also available. 5minutes is free and available 21/02. 847 counselors will work with 911 to help you get the care you need. Call 911 if you: ??? Have trouble breathing ??? Are??very confused ??? Feel very drowsy or have??trouble awakening ??? Faint ??? Have new chest pain that becomes more severe, lasts longer, or spreadsinto your shoulder, arm, neck, jaw, or back ?? When to get medical care Call your healthcare provider right away if any of these happen: ??? Your symptoms get worse ??? You have extreme depression, fear, anxiety, or anger toward yourself or others ??? You feel out of control ??? You feel that you may try to harm yourself or another ??? You hear voices other people don't hear ??? You see things other people don't see ??? You don't sleep or eat for 3 days in a row ??? Friends or family express concern over your behavior and ask you to get help ?? Last Reviewed Date: 2021 ?? 9191-5408 [employer]. All rights reserved. This information is not intended as a substitute for professional medical care. Always follow your healthcare professional's instructions. ?? * Palmer Mosher MD: PERFORM Event Display: Patient Education Leaflets Authored Date: [id number] Anxiety??Reaction ?? [id number] Anxiety??Reaction Anxiety is the feeling we all get when we think something bad might happen. It is a normal responseto stress. It most often causes only a mild reaction. But it can interfere with daily life when anxiety is more severe. In some cases, you may not know what you???re anxious about. Anxiety seems to have both mental and physical triggers. You may have stress from home and family. Or work and social relationships. Anxiety tends to run in families. This may mean it???s linked to genes. During an anxiety reaction, you may feel: ??? Helpless ??? Nervous ??? Depressed ??? Grouchy Your body may show signs of anxiety in many ways. You may have: ??? Dry mouth ??? Shakiness ??? Dizziness ??? Weakness ??? Trouble breathing ??? Fast breathing ???Chest pressure ??? Sweating ??? Headache ??? Nausea ??? Diarrhea ??? Tiredness ??? Inability to sleep ??? Sexual problems Home care Try to find those things that set off anxiety in your life. They may not be obvious. They may include: ??? Daily hassles of life. This can include traffic jams, missed appointments, or car troubles. ???Major life changes. This means both good changes, such as a new baby or job promotion. This can also mean tough life changes, such as loss of a job or loss of a loved one. ??? Overload. This means feeling that you have too many responsibilities. And that you can't take care of all of them. ??? Feeling helpless. You may feel you don???t have any control or choices. You may feel that your problems can't be solved. Notice how your body reacts to stress. This will help you take action before the stress sets off anxiety. When you can, make changes to reduce the sources of your stress. But stress in life often can't be prevented. It is important to learn how to manage stress to reduce anxiety. There are many proven methods that will reduce your anxiety. These include: ??? Exercise ??? Good nutrition ??? Getting enough sleep ??? Relaxation methods ??? Breathing exercises ??? Visualization ??? Biofeedback ??? Meditation ??? Counseling ??? Medicine For more information about this, talk with your healthcare provider. Or check online or at your local library or bookstore. You'll find many books and audiobooks on this subject. ?? Follow-up care If you feel your anxiety is not getting better with self-help, call your healthcare provider. Or make an appointment with a counselor. You may need short-term counseling or medicine to help you manage anxiety. ?? Call 911 Call 911 if any of the following occur: ??? Trouble breathing ??? Confusion ??? Drowsiness or trouble waking up ??? Fainting ??? Rapid heart rate ??? Seizure ??? New chest pain that becomes more severe, lasts longer, or spreads into your shoulder, arm, neck, jaw, or back Call or text 658 if you have thoughts of harming yourself or others. You will be connected to trained crisis counselors at the National Suicide Prevention Lifeline. An online chat option is also available at www.suicidepreventionlifeline.org. You can also call Lifeline at 578-088-MBNJ (139-219-9753). Lifeline is free and available 21/02. ?? When to get medical advice Call your healthcare provider right away if any of the following occur: ??? Symptoms that don't improve or get worse, such as feelings of hopelessness or overwhelming sadness ??? Severe headache not eased by rest and mild pain medicine The National Suicide Prevention Lifeline is available at 579-302-DTKW (419-190-4011). The Lifeline is available 21/02 and provides free and confidential support. The Lifeline also has an online chat at www.suicideIntrinsic Medical Imaging.org. ?? Last Reviewed Date: 2022 ?? 5812-9636 [employer]. All rights reserved. This information is not intended as a substitute for professional medical care. Always follow your healthcare professional's instructions. ?? Patient Care team information Care Team Personnel Name: Clint CARTER, Megan Bunch Position: Reference Physician Member Role: PCP Address: Address: [address] [place] [address], [address] [place], [place] [address] Name: *[facility], ED Attending Position: [facility] ED Attendings Patient Name: Palmer Mosher MD Position: [facility] ED Medicine MD Member Role: Admitting Physician Address: Address: [address] [place] [address]- Name: Steve Mendes RN Position: [facility] ED RN W/OE and Tasks Member Role: Patient Care Provider Name: Anali Clifton Position: [facility] ED TA [facility] Member Role: Agricultural Extension Educator Care Team Related Persons Name: JANNETH CHO Name: ALDO VIEIRA Address: home [address] [place], [place] Name: DEZ VIEIRA Address: home [address] Name: EUSEBIO JAMES Address: home [address] [address] Name: CRYSTAL FAM Address: home [address] [place] [address] Name: JULIET LAZO Address: home [address] [place] [address]
--- OUTSIDE RECORDS SUMMARY | 2023-07-08 13:29 | XMS_ITS | Continuity of Care Document ---
Author Name Unknown Organization [facility] ter Address [address] [place] [address]- Care Team Providers Care Buffet Manager Name Role Phone Clint CARTER, Megan Alivia Primary Care Physician [facility] Date[facility]s): [facility]07[facility]23 - 05/08/[address] [address]- Discharge Disposition: A-D/C Home Attending Physician: Kashif Petersen DO Admitting Physician: Kashif Petersen DO Referring Physician: Not on Staff, Referring [...] 02/20/23 15:31:00 EDT, Route to Pharmacy Electronically, [facility]/pharmacy #[id number], Partial fill upon patient request if the prescription is for a schedule II opioid dr... Start Date: 02/20/23 Status: Ordered hydrOXYzine hydrochloride 25 mg oral tablet 1 tablet = 25 mg, By Mouth, Daily, # 30 tablet, 0 Refills, Maintenance, 02/20/23 15:30:00 EDT, Tablet, [facility]/pharmacy #[id number], Partial fill upon patient request if [...] 12/05/21 2:42:00 EDT, Route to Pharmacy Electronically, [facility]/pharmacy #[id number], Partial fill upon patient request, 56.9, kg, [...] 3 Oxygen Saturation [94-100 %] 98 % (05/08/23 4:03 PM) 99 % (05/08/23 10:30 AM) 97 % (05/07/23 9:41 PM) Pulse Rate [55-90 bpm] 120 bpm *H* (05/08/23 4:03 PM) 94 bpm *H* (05/08/23 10:30 AM) 103 bpm *H* (05/07/23 9:41 PM) Blood Pressure [90-138/55-84 mm Hg] 124/71mm Hg (05/08/23 4:03 PM) 107/66mm Hg (05/08/23 10:30 AM) 124/81mm Hg (05/07/23 9:41 PM) Respiratory Rate [16-30 br/min] 18 br/min (05/08/23 4:03 PM) 16 br/min (05/08/23 10:30 AM) 18 br/min (05/07/23 9:41 PM) Temperature [96.8-100.4 DegF] 98.2 DegF (05/08/23 4:03 PM) 98.5 DegF (05/08/23 10:30 AM) 98.8 DegF (05/07/23 9:41 PM) Mode of Delivery (Oxygen) Room air (05/08/23 4:03 PM) Room air (05/08/23 10:30 AM) Room air (05/07/23 9:41 PM) Blood pressure sites Arm, right (05/08/23 4:03 PM) Arm, right (05/08/23 10:30 AM) Arm, right (05/07/23 9:41 PM) Temperature Route Oral (05/08/23 4:03 PM) Oral (05/08/23 10:30 AM) Oral (05/07/23 9:41 PM) Social History Social History Type Response Smoking Status Current every day sm oker; Tobacco user in household: Yes entered on: 08/22/15 Sex Note * Poonam Urbina DO: PERFORM Event Display: Patient Education Leaflets Authored Date: [id number] Psych Special Instructions ?? 269 ?? Psych Special Instructions ? Call Crisis team for emergency issues ??? Call outpatient provider for problems or questions ??? Call primary care physician for medical issues or follow up ? Patient Care team information Care Team Personnel Name: Megan Jaramillo MD Position: Reference Physician Member Role: PCP Address: Address: [address] [place] [address], [facility] [address] [place], [place], [place] [address] Name: *S, ED Attending Position: S ED Attendings Patient Name: Darnell Estevez RN Position: S ED RN W/OE and Tasks Member Role: Patient Care Provider Name: Kashif Petersen DO Position: [facility] Resident Member Role: Admitting Physician Address: Address: [address] [facility] Dept [place] [address]- [place] Care Team Related Persons Name: JANNETH CHO Name: ALDO VIEIRA Address: home [address] [place] [address] Name: DEZ VIEIRA Address: home [address] [address] Name: EUSEBIO JAMES Address: home [address] [address] Name: CRYSTAL FAM Address: home [address] [place] [address] Name: JULIET LAZO Address: home [address] [place] [address]
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
[2023-07-08 14:18] LABS: MANUAL DIFF FLAG NO
[2023-07-08 14:21] LABS: Basophils Absolute Auto 0.1 X10*3/uL (0.0-0.2); Basophils Percent Auto 0.9 % (0-2); Eosinophils Absolute Auto 0.2 X10*3/uL (0.0-0.4); Eosinophils Percent Auto 2.3 % (0-4); Hemoglobin 14.5 g/dl (14.0-18.0); Imm Gran Abs Auto 0.03 X10*3/uL (0.00-0.03); Imm Gran Pct Auto 0.4 % (0.0-0.4); Lymphocytes Absolute Auto 1.4 X10*3/uL (1.2-4.9); Lymphocytes Percent Auto 17.4 % (20-40); Mean Corpuscular HGB Conc 33.7 g/dl (31.0-36.0); Mean Corpuscular Hemoglobin 31.3 pg (27.0-33.0); Mean Corpuscular Volume 92.7 fL (80.0-98.0); Mean Platelet Volume 10.1 fL (9.4-12.4); Monocytes Absolute Auto 0.7 X10*3/uL (0.1-1.2); Monocytes Percent Auto 8.4 % (2-11); Neutrophils Absolute Auto 5.7 x10*3/uL (2.0-8.3); Neutrophils Percent Auto 70.6 % (45-73); Platelet Count 229 X10*3/uL (160-400); Red Blood Count 4.64 X10*6/uL (4.60-5.80); Red Cell Distribution Width 12.8 % (11.0-16.0); White Blood Count 8.1 X10*3/uL (4.8-10.8)
[2023-07-08 14:39] LABS: Acetaminophen LAB < 3 mcg/mL (<30); Salicylate < 5.0 mg/dL (15-30)
[2023-07-08 14:40] LABS: Alanine Aminotransferase 16 U/L (0-40); Albumin Level 4.5 g/dL (3.5-5.0); Alkaline Phosphatase 65 U/L (39-117); Anion Gap 12 (12-20); Aspartate Amino Transferase 15 U/L (5-37); Bilirubin Total 0.3 mg/dL (0.0-1.0); Blood Urea Nitrogen 12 mg/dL (9-16); Calcium 9.7 mg/dL (8.4-10.2); Carbon Dioxide 27 mmol/L (22-29); Chloride 104 mmol/L (96-108); Creatinine Clr Calc Pharmacy 124.9; Estimated Glomerular Filt Rate > 60; Ethanol < 10 mg/dL; Glucose Random 95 mg/dL (60-115); Potassium 4.1 mmol/L (3.3-5.1); Sodium 139 mmol/L (135-145); Total Protein 7.8 g/dL (6.5-8.0)
--- NOTE | 2023-07-08 18:08 | PHA.MEDREC ---
Pharmacy Consult ? Medication Reconciliation Pharmacy has re the medication reconciliation.
--- NOTE | 2023-07-08 18:08 | PHA.MEDREC ---
Pharmacy Consult ? Medication Reconciliation Pharmacy has reviewed the medication reconciliation completed by stephan.
[2023-07-08] MEDS: Nicotine Polacrilex 2 MG GUM BUCCAL (18:30)
--- NOTE | 2023-07-08 19:18 | PC.NURSE ---
patient appears to remain at rest at present respirations are even and unlabored patient appears in no distress
[2023-07-08] MEDS: diphenhydrAMINE HCL 25 MG CAPSULE 50 MG PO (20:05)
[2023-07-08] MEDS: OXcarbazepine 300 MG TABLET PO (20:05)
[2023-07-08] MEDS: Divalproex Sodium ER 500 MG TAB.ER.24H PO (20:06)
[2023-07-08] MEDS: Prazosin HCL 1 MG CAPSULE PO (20:06)
[2023-07-08] MEDS: traZODone HCL 50 MG TABLET PO (20:06)
[2023-07-08] MEDS: Acamprosate Calcium 333 MG TABLET.DR 666 MG PO (20:06)
[2023-07-08 20:15] VITALS: BP 118/81; PULSE 94; RESP 18; TEMP 36.9; O2SAT 97
--- NOTE | 2023-07-09 09:14 | MHC.CARE ---
COPY OPERATOR Janet ACCS declined patient
[2023-07-09] MEDS: OXcarbazepine 300 MG TABLET PO (09:19)
[2023-07-09] MEDS: ARIPiprazole 10 MG TABLET PO (09:19)
[2023-07-09] MEDS: Acamprosate Calcium 333 MG TABLET.DR 666 MG PO (09:19)
[2023-07-09 10:13] VITALS: BP 114/70; PULSE 102; RESP 18; TEMP 36.7; O2SAT 97
--- NOTE | 2023-07-09 11:12 | PC.NURSE ---
PT was compliant with Am medications and req/rec snacks and the phone. When CARE team approached pt about DC he became increasingly agitated reporting he has no where to go . PT req his cell phone to get his mothers number and began to use his phone when it was handed to him. PT asked to refrain from using phone while he was still on the unit and responded with fuck you you can't tell me what to do . Pt then stated I'll spit on you . Security was called at this point and since PT has been cleared for discharge he was asked to leave the unit. Refused to sign discharge paperwork. Stated fuck all of you when leaving.
== END 2023-07-09 11:17 | disposition home or self-care (01) ==
PROVIDERS: Physician Assistant Medical; Emergency Provider Emergency Medicine
DX: F32.9 Major depressive disorder, single episode, unspecified (principal); F17.210 Nicotine dependence, cigarettes, uncomplicated; Z71.6 Tobacco abuse counseling; Z79.899 Other long term (current) drug therapy
CPT/HCPCS: 80053; 80143; 80179; 80307; 81003; 85025; 99284; S9485